=== PATIENT | male | born 1950 | race Caucasian/White ===

== ENCOUNTER 2020-08-21 20:41 | Emergency (ER) | payer OTHER, MEDICAID, SELFPAY ==
[2020-08-21 20:44] VITALS: BP 176/101; PULSE 66; RESP 15; TEMP 36.8; O2SAT 96; BMI 24.3
--- NOTE | 2020-08-21 20:47 | ECG_ITS ---
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 Measurements Intervals [place] Rate: 62 P: 75 [place]: 139 QRS: 67 QRSD: 93 T: 56 QT: 398 QTc: 406 Interpretive Statements SINUS RHYTHM MINIMAL ST DEPRESSION [0.025+ mV ST DEPRESSION] Compared to ECG 11/27/2018 19:13:34 ST (T wave) deviation now present Sinus bradycardia no longer present Sinus arrhythmia no longer present Electronically Signed On 08-22-2020 22:14:57 CDT by Lex Palm M.D. [email or web address]/store/NU/[id number] f
--- NOTE | 2020-08-21 20:47 | XRR_ITS ---
PROCEDURE INFORMATION: Exam: XR Chest Exam date and time: 08/21/2020 9:09 PM Age: 69 years old Clinical indication: Pain; Chest pressure and left-sided; Additional info: Cp TECHNIQUE: Imaging protocol: XR of the chest. Views: 1 view. COMPARISON: CR Chest 2 views* [id number] 05/16/2018 1:59 PM FINDINGS: Lungs: Emphysema. Mild atelectasis or scarring in the lung bases. The lungs are otherwise clear. Pleural spaces: Unremarkable. No pleural effusion. No pneumothorax. Heart/Mediastinum: Unremarkable. No cardiomegaly. Bones/joints: Unremarkable. XR/XR chest 1V portable [id number] IMPRESSION: No acute findings.
[2020-08-21 21:07] LABS: Basophils # 0.1 10^3/uL (0.0-0.1); Eosinophils # 0.1 10^3/uL (0.0-0.8); Eosinophils % 1.5 %; Hematocrit 43.4 % (42.0-52.0); Hemoglobin 14.9 g/dL (11.7-16.6); Lymphocytes # 2.4 10^3/uL (0.8-4.8); Lymphocytes % 26.9 %; Mean Corpuscular HGB Conc 34.3 g/dL (30.0-36.0); Mean Corpuscular Hemoglobin 29.4 pg (28.0-34.0); Mean Corpuscular Volume 85.8 fL (80-94); Mean Platelet Volume 10.5 fL (7.4-10.4); Monocytes # 0.8 10^3/uL (0.2-0.9); Monocytes % 9.4 %; Neutrophils # 5.34 10^3/uL (1.8-7.7); Nucleated Red Blood Cells % 0 %; Platelet Count 260 10^3/cmm (130-400); Red Blood Count 5.06 10^6/uL (4.1-5.3); Red Cell Distribution Width 12.9 % (12.1-15.1); White Blood Count 8.8 10^3/uL (4.0-10.0)
[2020-08-21 21:20] VITALS: BP 138/85; PULSE 72; RESP 17; O2SAT 95
[2020-08-21 21:30] VITALS: BP 162/93; PULSE 60; RESP 16; O2SAT 95
[2020-08-21 21:34] LABS: Troponin(5th) Baseline 7 ng/L (0-15)
[2020-08-21 21:44] LABS: Alanine Aminotransferase 8 U/L (0-41); Albumin Level 4.3 g/dL (3.5-5.2); Alkaline Phosphatase 118 IU/L (40-130); Anion Gap 14.7 (5-19); Aspartate Amino Transferase 13 U/L (0-40); Blood Urea Nitrogen 14 mg/dL (8-23); Calcium 9.3 mg/dL (8.5-10.5); Carbon Dioxide 26 mmol/L (22-29); Chloride 101 mmol/L (98-107); Globulin 2.5 g/dL (1.3-4.6); Glomerular Filtration Rate 83.7 mL/min (90-130); Glucose 123 mg/dL (65-115); NT Pro B Type Natriuretic Pept 242 pg/mL (0-125); Osmolality Calculated 288 mOsm/kg (285-295); Potassium 3.7 mmol/L (3.5-5.1); Sodium 138 mmol/L (136-145); Total Bilirubin 0.3 mg/dL (0.15-1.2); Total Protein 6.8 g/dL (6.6-8.7)
[2020-08-21 21:50] LABS: D Dimer 2.54 ug/mIFEU (0-0.59)
[2020-08-21 22:00] VITALS: BP 172/95; PULSE 66; RESP 16; O2SAT 97
--- NOTE | 2020-08-21 22:04 | CTR_ITS ---
PROCEDURE INFORMATION: Exam: CTA Chest With Contrast Exam date and time: 08/21/2020 10:20 PM Age: 69 years old Clinical indication: Sternal or substernal pain; Patient HX: C/O intermittent substernal cp x 3 days; Additional info: Cp. Elevated d dimer TECHNIQUE: Imaging protocol: Computed tomographic angiography of the chest with contrast. 3D rendering (Not supervised by radiologist): MIP and/or 3D reconstructed images were created by the technologist. Radiation optimization: All CT scans at this facility use at least one of these dose optimization techniques: automated exposure control; mA and/or kV adjustment per patient size (includes targeted exams where dose is matched to clinical indication); or iterative reconstruction. Contrast material: OMNI 350; Contrast volume: 81 ml; Contrast route: INTRAVENOUS (IV); COMPARISON: CR (CHEST, ) 08/21/2020 9:13 PM RADIATION DOSE METRICS: Total DLP (mGy-cm): 604.23 FINDINGS: Pulmonary arteries: Normal. No pulmonary emboli. Aorta: Mild aneurysmal dilatation of the proximal abdominal aorta measuring 3.1 cm. Mild aneurysmal dilatation of the descending thoracic aorta measuring 3.2 cm. No dissection. Lungs: Emphysema. Mild interstitial scarring in the peripheral upper lobes. Large calcified granuloma in the superior segment of the left lower lobe. 3.1 cm spiculated nodule in the retro hilar left lower lobe. 6 mm perifissural nodule along the left major fissure near the hilum, most likely a pulmonary lymph node. Pleural spaces: Unremarkable. No pneumothorax. No pleural effusion. Heart: Unremarkable. No cardiomegaly. No pericardial effusion. Lymph nodes: 0.8 cm pretracheal lymph node is likely benign by size. Gallbladder and bile ducts: Cholelithiasis with a small calculus in the gallbladder neck. Bile ducts are normal. Bones/joints: Unremarkable. No acute fracture. Soft tissues: Unremarkable. CT/CT angio chest PE protcl [id number] IMPRESSION: 1. 3.1 cm spiculated nodule in the retro hilar left lower lobe, highly suspicious for bronchogenic carcinoma. Highly suspicious nodule(s). Consider non-emergent PET/CT, or tissue sampling.(Reference: Ronni) 2. No evidence for pulmonary embolus. 3. 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 References: Ronni Cote, et al. Guidelines for Management of Incidental Pulmonary Nodules Detected on CT Images: From the Fleischner Society 2017. Radiology. 2017;284(1):228-243. Radiation Dose CTDIVOL = (mGy): DLP = 604.23 (mGy-cm)
--- NOTE | 2020-08-21 22:11 | W.ED.CHESTPA ---
Documented by User: Kevin Jiménez MD 08/22/20 12:10 HPI - Chest Pain General: Chief Complaint: Chest Pain Stated Complaint: CP Time Seen by Provider: 08/21/20 20:43 History of Present Illness: HPI narrative: The patient is a 69-year-old male with past medical history hypertension who comes to the ER complaining of midsternal chest pain for the past 3 days. It radiates to the right and left. He denies any previous cardiac history. He says it started when he was playing a video game at home. He says it has been on and off for the past 3 days. He has never seen a tree specialist. He called EMS who gave him 325 mg aspirin. They also gave him a nitroglycerin. He said he was not feeling chest pain whenever they gave him the nitroglycerin but he does have a mild headache related to that medication. He denies chest pain in the ER as well. complaint: chest pain Timing of current episode: episodic Prior episodes: Yes Onset: during rest Pain location: substernal Severity: mild Relieving factors: nothing Exacerbating factors: nothing Associated symptoms: Reports no associated symptoms; Deny abdominal pain, dyspnea or palpitations Review of Systems General: Reports: 10 or more systems reviewed and unremarkable except in HPI and below Const: Denies: fatigue Eyes: Denies: change in vision, blurry vision or eye redness ENMT: Denies: throat pain, swelling of lips/tongue, ear or mastoid pain or nasal congestion Card: Denies: chest pain, palpitations, irregular heart rhythm, edema, dyspnea on exertion or orthopnea Resp: Denies: dyspnea, productive cough or non-productive cough GI: Denies: abdominal pain, diarrhea or GI cramping : Denies: flank pain, urinary frequency or urinary urgency Musc: Denies: neck pain, back pain, extremity pain, joint pain, joint redness, limited range of motion or muscle weakness Skin/Breast: Denies: rash, pruritus, erythema, skin pain or skin tenderness Neuro: Denies: headache(s), numbness in extremities, weakness in extremities, sensory changes, difficulty walking, dizziness, confusion or Slurred speech present Psych: Denies: anxiety or depression Endo: Denies: polyuria All/Imm: Denies: urticaria, throat swelling or tongue swelling Physical Exam Const: COMMON NORMALS: no acute distress, average body habitus, patient oriented x3, no limitations, healthy appearing, alert and well nourished GENERAL APPEARANCE: cooperative, comfortable, well kempt and well developed ORIENTATION/CONSCIOUSNESS: Yes awake, Yes oriented to person, Yes oriented to place and Yes oriented to time HENMT: COMMON NORMALS: normocephalic, external ears normal and Normal external nose present HEAD & SCALP: normal to inspection and normocephalic NOSE: Normal external nose present EXTERNAL EAR: Yes external ears normal MOUTH: Normal oral and palatal mucosa present THROAT: posterior oropharynx normal Eye: COMMON NORMALS: Equal, round and reactive pupils present and EOMs intact bilaterally GENERAL EYE: appearance normal, both eyes and all related structures PUPIL: Yes Equal, round and reactive pupils present Neck/C-Spine: COMMON NORMALS: full ROM, no lymphadenopathy, no meningeal signs and no JVD GENERAL: Yes normal visual inspection Lymph: LYMPHATIC: no lymphadenopathy noted Chest: COMMONS NORMALS: normal inspection of the chest and normal palpation of entire chest wall Resp: COMMON NORMALS: normal respiratory effort, No retractions, No use of accessory muscles, clear to auscultation bilaterally and percussion normal EFFORT & INSPECTION: Yes able to speak in complete sentences AUSCULTATION: clear to auscultation bilaterally PERCUSSION: percussion normal Cardio: COMMON NORMALS: no JVD, regular rate, regular rhythm, S1 normal heart sound present, S2 normal heart sound present and Peripheral pulses 2+ throughout RATE: regular rate RHYTHM: regular rhythm HEART SOUNDS: S1 normal heart sound present and S2 normal heart sound present PERIPHERAL PULSES: Peripheral pulses 2+ throughout GI: COMMON NORMALS: Normal to inspection, nondistended, normoactive bowel sounds present, Soft to palpation, non-tender and no masses INSPECTION: Yes normal to inspection PALPATION: Yes Soft to palpation : COMMON NORMALS: Yes no CVA tenderness BLADDER/KIDNEY EXAM: Yes no CVA tenderness Back/Pelvis: COMMON NORMALS: no CVA tenderness, thoracic and lumbar spine normal to inspection, no thoracic nor lumbar tenderness and thoraco-lumbar ROM normal Extremity: COMMON NORMALS: normal to inspection, full ROM, capillary refill normal, no joint enlargement and no pedal edema GENERAL: Yes normal exam except as noted Neuro: COMMON NORMALS: patient oriented x3, CN's II-XII intact bilaterally, moves all extremities, no focal motor deficits, no sensory deficits noted and gait normal SENSORIUM/ORIENTATION: Yes alert, Yes oriented to person, Yes oriented to place and Yes oriented to time MENINGEAL SIGNS: Yes no meningeal signs Psych: COMMON NORMALS: mental status grossly normal, Normal thought process present, cooperative, normal affect and speech normal APPEARANCE: Yes well kempt ATTITUDE: Yes calm SPEECH: Yes normal speech THOUGHT PROCESS: Normal thought process present Skin: COMMON NORMALS: no rashes or lesions noted GENERAL SKIN EXAM: no rashes or lesions noted Course Vital Signs: Vital signs: Vital Signs Temperature 98.3 F 08/21/20 20:44 Pulse Rate 56 L 08/22/20 01:44 Respiratory Rate 17 08/22/20 01:44 Blood Pressure 180/87 08/22/20 01:44 Pulse Oximetry 95 08/22/20 01:44 MDM - Chest Pain Lab Data: Labs: Lab Results 08/21/20 08/21/20 08/21/20 Range/Units 21:02 21:02 21:02 WBC 8.8 (4.0-10.0) 10^3/ uL RBC 5.06 (4.1-5.3) 10^6/u L Hgb 14.9 (11.7-16.6) g/dL Hct 43.4 (42.0-52.0) % MCV 85.8 (80-94) fL MCH 29.4 (28.0-34.0) pg MCHC 34.3 (30.0-36.0) g/dL RDW 12.9 (12.1-15.1) % Plt Count 260 (130-400) 10^3/c mm MPV 10.5 H (7.4-10.4) fL Neut % (Auto) 61.0 % Lymph % (Auto) 26.9 % [place] % (Auto) 9.4 % Eos % (Auto) 1.5 % Baso % (Auto) 1.0 % Neut # (Auto) 5.34 (1.8-7.7) 10^3/u L Lymph # (Auto) 2.4 (0.8-4.8) 10^3/u L [place] # (Auto) 0.8 (0.2-0.9) 10^3/u L Eos # (Auto) 0.1 (0.0-0.8) 10^3/u L Baso # (Auto) 0.1 (0.0-0.1) 10^3/u L Nucleated RBC % (a uto) 0 % Nucleated RBCs # 0.0 /100WBC D-Dimer (0-0.59) ug/mIFE U Sodium 138 (136-145) mmol/L Potassium 3.7 (3.5-5.1) mmol/L Chloride 101 (98-107) mmol/L Carbon Dioxide 26 (22-29) mmol/L Anion Gap 14.7 (5-19) BUN 14 (8-23) mg/dL Creatinine 0.9 (0.7-1.2) mg/dL GFR Calculation 83.7 L (90-130) mL/min Glucose 123 H (65-115) mg/dL Calculated Osmolal ity 288 (285-295) mOsm/k g Calcium 9.3 (8.5-10.5) mg/dL Total Bilirubin 0.3 (0.15-1.2) mg/dL AST 13 (0-40) U/L ALT 8 (0-41) U/L Alkaline Phosphata se 118 (40-130) IU/L Troponin T Baselin e 7 (0-15) ng/L Troponin T 120 Min [place] (0-15) ng/L Delta Troponin T (0-10) ABS# NT-Pro-B Natriuret Pep 242 H (0-125) pg/mL Total Protein 6.8 (6.6-8.7) g/dL Albumin 4.3 (3.5-5.2) g/dL Globulin 2.5 (1.3-4.6) g/dL 08/21/20 08/21/20 Range/Units 21:25 23:46 WBC (4.0-10.0) 10^3/ uL RBC (4.1-5.3) 10^6/u L Hgb (11.7-16.6) g/dL Hct (42.0-52.0) % MCV (80-94) fL MCH (28.0-34.0) pg MCHC (30.0-36.0) g/dL RDW (12.1-15.1) % Plt Count (130-400) 10^3/c mm MPV (7.4-10.4) fL Neut % (Auto) % Lymph % (Auto) % [place] % (Auto) % Eos % (Auto) % Baso % (Auto) % Neut # (Auto) (1.8-7.7) 10^3/u L Lymph # (Auto) (0.8-4.8) 10^3/u L [place] # (Auto) (0.2-0.9) 10^3/u L Eos # (Auto) (0.0-0.8) 10^3/u L Baso # (Auto) (0.0-0.1) 10^3/u L Nucleated RBC % (a uto) % Nucleated RBCs # /100WBC D-Dimer 2.54 H (0-0.59) ug/mIFE U Sodium (136-145) mmol/L Potassium (3.5-5.1) mmol/L Chloride (98-107) mmol/L Carbon Dioxide (22-29) mmol/L Anion Gap (5-19) BUN (8-23) mg/dL Creatinine (0.7-1.2) mg/dL GFR Calculation (90-130) mL/min Glucose (65-115) mg/dL Calculated Osmolal ity (285-295) mOsm/k g Calcium (8.5-10.5) mg/dL Total Bilirubin (0.15-1.2) mg/dL AST (0-40) U/L ALT (0-41) U/L Alkaline Phosphata se (40-130) IU/L Troponin T Baselin e (0-15) ng/L Troponin T 120 Min [place] 8.05 (0-15) ng/L Delta Troponin T 1.05 (0-10) ABS# NT-Pro-B Natriuret Pep (0-125) pg/mL Total Protein (6.6-8.7) g/dL Albumin (3.5-5.2) g/dL Globulin (1.3-4.6) g/dL Discharge Plan Discharge Patient Disposition: Home Clinical Impression: Chest pain Qualifiers: Chest pain type: unspecified Qualified Code(s): R07.9 - Chest pain, unspecified Condition: Stable Discharge Orders: Discharge ED (Routine); Ordered 08/22/20 Ordered By: Srinivas Hong Referrals: Nusrat Galicia, [facility] [Primary Care Provider] - Discharge Diet: Advance as tolerated Discharge Activity: Increase activity as tolerated Patient Instructions: Lump/Mass, Chest Pain (ED) Activity Restrictions/Additional Instructions: A referral has been placed for our manager of case management to set you up with an appointment for cardiothoracic surgery evaluation to see if biopsy is needed of the pulmonary nodule found on your CAT scan of your chest. In the meantime, return to the emergency department for return of chest pain, shortness of breath, fever, any other concerning symptoms. Coding Level of Care Code ED Prosthetic Aide for Chg Fwd Exam Comprehensive Documented by User: Srinivas Hong, 08/22/20 02:24 HPI - Chest Pain General: Chief Complaint: Chest Pain Stated Complaint: CP Time Seen by Provider: 08/21/20 20:43 Course Vital Signs: Vital signs: Vital Signs Temperature 98.3 F 08/21/20 20:44 Pulse Rate 56 L 08/22/20 01:44 Respiratory Rate 17 08/22/20 01:44 Blood Pressure 180/87 08/22/20 01:44 Pulse Oximetry 95 08/22/20 01:44 MDM - Chest Pain MDM Narrative: Medical decision making narrative: 69-year-old male checked out to me by Dr. Rosado at shift change. This gentleman had chest pain earlier in the evening. Cardiac work-up was negative. His EKG showed no acute ST changes x2. His troponin did not elevate. His D-dimer was significantly high, so CTA of the chest was ordered. It is negative for pulmonary embolism or infiltrate. However, there is a suspicious pulmonary nodule for bronchogenic carcinoma apparent. The patient was counseled on this, and the need for follow-up and tissue diagnosis. Case management referral has been placed for a office visit to cardiothoracic surgery for follow-up. Lab Data: Labs: Lab Results 08/21/20 08/21/20 08/21/20 Range/Units 21:02 21:02 21:02 WBC 8.8 (4.0-10.0) 10^3/ uL RBC 5.06 (4.1-5.3) 10^6/u L Hgb 14.9 (11.7-16.6) g/dL Hct 43.4 (42.0-52.0) % MCV 85.8 (80-94) fL MCH 29.4 (28.0-34.0) pg MCHC 34.3 (30.0-36.0) g/dL RDW 12.9 (12.1-15.1) % Plt Count 260 (130-400) 10^3/c mm MPV 10.5 H (7.4-10.4) fL Neut % (Auto) 61.0 % Lymph % (Auto) 26.9 % [place] % (Auto) 9.4 % Eos % (Auto) 1.5 % Baso % (Auto) 1.0 % Neut # (Auto) 5.34 (1.8-7.7) 10^3/u L Lymph # (Auto) 2.4 (0.8-4.8) 10^3/u L [place] # (Auto) 0.8 (0.2-0.9) 10^3/u L Eos # (Auto) 0.1 (0.0-0.8) 10^3/u L Baso # (Auto) 0.1 (0.0-0.1) 10^3/u L Nucleated RBC % (a uto) 0 % Nucleated RBCs # 0.0 /100WBC D-Dimer (0-0.59) ug/mIFE U Sodium 138 (136-145) mmol/L Potassium 3.7 (3.5-5.1) mmol/L Chloride 101 (98-107) mmol/L Carbon Dioxide 26 (22-29) mmol/L Anion Gap 14.7 (5-19) BUN 14 (8-23) mg/dL Creatinine 0.9 (0.7-1.2) mg/dL GFR Calculation 83.7 L (90-130) mL/min Glucose 123 H (65-115) mg/dL Calculated Osmolal ity 288 (285-295) mOsm/k g Calcium 9.3 (8.5-10.5) mg/dL Total Bilirubin 0.3 (0.15-1.2) mg/dL AST 13 (0-40) U/L ALT 8 (0-41) U/L Alkaline Phosphata se 118 (40-130) IU/L Troponin T Baselin e 7 (0-15) ng/L Troponin T 120 Min [place] (0-15) ng/L Delta Troponin T (0-10) ABS# NT-Pro-B Natriuret Pep 242 H (0-125) pg/mL Total Protein 6.8 (6.6-8.7) g/dL Albumin 4.3 (3.5-5.2) g/dL Globulin 2.5 (1.3-4.6) g/dL 08/21/20 08/21/20 Range/Units 21:25 23:46 WBC (4.0-10.0) 10^3/ uL RBC (4.1-5.3) 10^6/u L Hgb (11.7-16.6) g/dL Hct (42.0-52.0) % MCV (80-94) fL MCH (28.0-34.0) pg MCHC (30.0-36.0) g/dL RDW (12.1-15.1) % Plt Count (130-400) 10^3/c mm MPV (7.4-10.4) fL Neut % (Auto) % Lymph % (Auto) % [place] % (Auto) % Eos % (Auto) % Baso % (Auto) % Neut # (Auto) (1.8-7.7) 10^3/u L Lymph # (Auto) (0.8-4.8) 10^3/u L [place] # (Auto) (0.2-0.9) 10^3/u L Eos # (Auto) (0.0-0.8) 10^3/u L Baso # (Auto) (0.0-0.1) 10^3/u L Nucleated RBC % (a uto) % Nucleated RBCs # /100WBC D-Dimer 2.54 H (0-0.59) ug/mIFE U Sodium (136-145) mmol/L Potassium (3.5-5.1) mmol/L Chloride (98-107) mmol/L Carbon Dioxide (22-29) mmol/L Anion Gap (5-19) BUN (8-23) mg/dL Creatinine (0.7-1.2) mg/dL GFR Calculation (90-130) mL/min Glucose (65-115) mg/dL Calculated Osmolal ity (285-295) mOsm/k g Calcium (8.5-10.5) mg/dL Total Bilirubin (0.15-1.2) mg/dL AST (0-40) U/L ALT (0-41) U/L Alkaline Phosphata se (40-130) IU/L Troponin T Baselin e (0-15) ng/L Troponin T 120 Min [place] 8.05 (0-15) ng/L Delta Troponin T 1.05 (0-10) ABS# NT-Pro-B Natriuret Pep (0-125) pg/mL Total Protein (6.6-8.7) g/dL Albumin (3.5-5.2) g/dL Globulin (1.3-4.6) g/dL Discharge Plan Discharge Patient Disposition: Home Clinical Impression: Chest pain Qualifiers: Chest pain type: unspecified Qualified Code(s): R07.9 - Chest pain, unspecified Condition: Stable Discharge Orders: Discharge ED (Routine); Ordered 08/22/20 Ordered By: Srinivas Hong Referrals: Nusrat Galicia FNP-C [Primary Care Provider] - Discharge Diet: Advance as tolerated Discharge Activity: Increase activity as tolerated Patient Instructions: Lump/Mass, Chest Pain (ED) Activity Restrictions/Additional Instructions: A referral has been placed for our manager of case management to set you up with an appointment for cardiothoracic surgery evaluation to see if biopsy is needed of the pulmonary nodule found on your CAT scan of your chest. In the meantime, return to the emergency department for return of chest pain, shortness of breath, fever, any other concerning symptoms. Coding Level of Care Code ED Prosthetic Aide for Sharmila [place] Exam Comprehensive
[2020-08-21 22:30] VITALS: BP 191/82; PULSE 66; RESP 16; O2SAT 97
[2020-08-21] MEDS: iohexol 350 mg/mL 100 mL Btl IV (22:34)
--- NOTE | 2020-08-21 22:47 | ECG_ITS ---
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 Measurements Intervals [place] Rate: 56 P: 61 NE: 133 QRS: 69 QRSD: 97 T: 61 QT: 413 QTc: 399 Interpretive Statements SINUS BRADYCARDIA Compared to ECG 11/27/2018 19:13:34 Sinus arrhythmia no longer present Electronically Signed On 08-22-2020 22:16:14 CDT by Lex Palm M.D. [id number]
[2020-08-22] MEDS: enalaprilat 1.25 mg/mL Inj IVP (00:02)
[2020-08-22 00:05] VITALS: BP 190/95; PULSE 59; RESP 18; O2SAT 97
[2020-08-22 00:16] VITALS: BP 185/91; PULSE 52; RESP 16; O2SAT 96
[2020-08-22 00:16] LABS: Troponin 5 2HR 8.05 ng/L (0-15); Troponin 5 2HR Delta 1.05 ABS# (0-10)
[2020-08-22 01:00] VITALS: BP 180/87; PULSE 56; RESP 17; O2SAT 96
[2020-08-22 01:43] VITALS: BP 180/87; PULSE 56; RESP 17; O2SAT 95
[2020-08-22 01:44] VITALS: BP 180/87; PULSE 56; RESP 17; O2SAT 95
--- NOTE | 2020-08-25 10:42 | DCPLANNER ---
manager of regulatory affairs had message to schedule a follow up appointment for patient with Dr. Esquivel at [facility], and a follow up appointment with cardiology. manager of regulatory affairs called [facility], spoke with Katie, gave clinic patients information. A follow up appointment was scheduled for Monday, September 14, 2020 at 2:[address] Dorantes. manager of regulatory affairs also gave Katie patients information for a follow up appointment with Dr. Esquivel. A follow up appointment was scheduled for Thursday, September 03, 2020 at 11:[address] Esquivel. manager of regulatory affairs called patient and gave patient the appointment information for both appointments.
--- NOTE | 2020-10-14 07:02 | DCPLANNER ---
Patient had a follow up appointment scheduled for 09.03.20 with [facility] - patient did attend appointment.
--- NOTE | 2020-10-14 07:44 | DCPLANNER ---
Patient had a follow up appointment scheduled with [facility] - patient did attend appointment.
== END 2020-08-22 01:40 | disposition home or self-care (01) ==
PROVIDERS: Family Medicine; Emergency Provider Emergency Medicine; PCP Nurse Practitioner
DX: R07.9 Chest pain, unspecified (principal)
CPT/HCPCS: 36415; 71045; 71275; 80053; 83880; 84484; 85025; 85378; 93005; 96374; 99284; J3490; Q9967

== ENCOUNTER 2021-03-19 15:06 | Emergency (ER) | payer MEDICARE, MEDICAID, SELFPAY ==
--- NOTE | 2021-03-19 15:37 | XRR_ITS ---
PROCEDURE INFORMATION: Exam: XR Chest Exam date and time: 03/19/2021 3:37 PM Age: 70 years old Clinical indication: Cough and shortness of breath; Additional info: Dyspnea/cough TECHNIQUE: Imaging protocol: XR of the chest. Views: 1 view. Total images: 1 COMPARISON: 1. CR (CHEST, ) 08/21/2020 9:[address] angio chest PE protcl [id number] 10:21 PM FINDINGS: Lungs: No visible active interstitial or alveolar airspace disease. COPD/chronic bronchitis/centrilobular emphysema. Again note of a superior segment left upper lobe calcified granuloma of antecedent disease. The medial basal segment retrohilar/retrocardiac mass identifiable on the CTA chest exam of 08/21/2020 is poorly radiographically visible. Pleural spaces: No pleural effusion. No pneumothorax. Heart/Mediastinum: Cardiac structures and configuration within normal limits for age. Bones/joints: Mild scoliotic curvature of the spine. XR/XR chest 1V portable [id number] IMPRESSION: 1. No radiographic evidence for acute cardiopulmonary process. 2. Other nonurgent/nonemergent findings as detailed in text above.
--- NOTE | 2021-03-19 15:37 | ECG_ITS ---
[facility] Test Date: 2021-03-19 Pat Name: Dario Brunner Department: Room: Gender: Male Rib Chopper: : 1950 Requested By: Elias Liang Order Number: [id number] Royce MD: Mary Dorantes M.D. Measurements Intervals [place] Rate: 45 P: 60 CA: 143 QRS: 71 QRSD: 91 T: 66 QT: 447 QTc: 389 Interpretive Statements SINUS BRADYCARDIA MINIMAL ST DEPRESSION [0.025+ mV ST DEPRESSION] Compared to ECG 08/21/2020 22:49:31 ST (T wave) deviation now present Electronically Signed On 03-20-2021 20:15:34 GAS COMPRESSOR TURBINE OPERATOR by Mary Dorantes M.D. [id number]
--- NOTE | 2021-03-19 16:00 | W.ED.SOB ---
HPI - SOB/Dyspnea General: Stated Complaint: SOB Time Seen by Provider: 03/19/21 15:11 History of Present Illness: HPI Narrative: 70-year-old male presents to the emergency room with complaints of shortness of breath. Presented via EMS. He denies any chest pain. He is extremely kyphotic. He has had a moderately productive cough. No fever. On arrival here his O2 sat is 99% on 3 L by nasal cannula which is what he usually uses. MD elicited complaint: shortness of breath and cough Pertinent past history: COPD Onset (ago): hour(s) Timing: constant Severity: mild Exacerbating factors: exertion and coughing Relieving factors: oxygen, rest and bronchodilators Known history of: COPD Associated symptoms: Reports cough; Deny abdominal pain, chest congestion, chest pain, diaphoresis, dizziness, extremity pain, fever(s), hemoptysis, lightheadedness, myalgias, nausea, orthopnea, palpitations, paresthesias, polydipsia, polyuria, rash, sense of impending doom, syncope or vomiting Treatment prior to arrival: oxygen and bronchodilator Review of Systems Const: Denies: fever(s) or diaphoresis Eyes: Denies: change in vision or blurry vision ENMT: Denies: throat pain, oral sores, dental pain, nasal discharge or nasal congestion Card: Denies: chest pain, palpitations, lightheadedness, syncope or orthopnea Resp: Denies: hemoptysis or chest congestion GI: Denies: abdominal pain, nausea or vomiting : Denies: flank pain, difficulty urinating, dysuria, urinary frequency, urinary urgency, urinary incontinence or hematuria Musc: Denies: extremity pain Skin/Breast: Denies: rash, pruritus or erythema Neuro: Denies: dizziness Psych: Denies: anxiety, depression, loss of interest, visual hallucinations, auditory hallucinations, suicidal ideation or homicidal ideation Endo: Denies: polyuria or polydipsia Nnamdi/Lymph: Denies: easy bruising, easy bleeding, petechiae, enlarged lymph nodes or tender lymph nodes PFSH ED PFSH: Medical History COPD (chronic obstructive pulmonary disease) Hypertension Lung mass Schizophrenia Family History Mother Cancer Other Family history unobtainable due to orphan status Social History Smoking and tobacco status: current every day smoker cigarettes Packs smoked per day: 1 Years cigarettes smoked: 40 Alcohol intake: former Year of sobriety/quit date alcohol: 25 Physical Exam Const: ORIENTATION/CONSCIOUSNESS: Yes awake, Yes oriented to person, Yes oriented to place and Yes oriented to time HENMT: COMMON NORMALS: normocephalic, atraumatic and hearing grossly normal bilaterally HEAD & SCALP: normocephalic and atraumatic Neck/C-Spine: COMMON NORMALS: no JVD Resp: AUSCULTATION: rhonchi and wheezes Cardio: COMMON NORMALS: no JVD, regular rhythm and No murmurs present (Cardio) RATE: bradycardic RHYTHM: regular rhythm GI: COMMON NORMALS: Soft to palpation and No hepatosplenomegaly present AUSCULTATION: Yes normoactive bowel sounds PALPATION: Yes Soft to palpation, No Tenderness to palpation present (GI), No Guarding due to palpation present (GI) and Yes No hepatosplenomegaly present Extremity: COMMON NORMALS: normal to inspection, capillary refill normal, no clubbing, cyanosis or edema, no calf tenderness and no pedal edema Neuro: SENSORIUM/ORIENTATION: Yes oriented to person, Yes oriented to place and Yes oriented to time Skin: COMMON NORMALS: no rashes or lesions noted GENERAL SKIN EXAM: no rashes or lesions noted Course Vital Signs: Vital signs: Vital Signs Pulse Rate 60 03/19/21 19:35 Respiratory Rate 18 03/19/21 19:35 Blood Pressure 145/81 03/19/21 19:35 Pulse Oximetry 93 03/19/21 19:35 MDM - SOB/Dyspnea MDM Narrative: Medical decision making narrative: Labs and imaging reviewed as well as EKGs. Patient is feeling better sats remaining stable. He has pretty significant COPD. We will tomi discharge him home put him on a steroid taper in addition to that we will have him start doxycycline use albuterol regularly continue to use his oxygen and follow-up with his primary care doctor within the next 4 to 5 days return sooner if there is further problems. Lab Data: Labs: Lab Results 03/19/21 03/19/21 03/19/21 15:20 15:20 15:20 WBC 10.6 10^3/uL H 10 ^3/uL (4.0-10.0) RBC 5.25 10^6/uL 10^6 /uL (4.1-5.3) Hgb 15.9 g/dL g/dL (11.7-16.6) Hct 47.1 % % (42.0-52.0) MCV 89.7 fl fl (80-94) MCH 30.3 pg pg (28.0-34.0) MCHC 33.8 g/dL g/dL (30.0-36.0) RDW 13.2 % % (12.1-15.1) Plt Count 284 10^3/cmm 10^3 /cmm (130-400) MPV 10.6 fL H fL (7.4-10.4) Neut % (Auto) 63.7 % % Lymph % (Auto) 24.9 % % [place] % (Auto) 8.4 % % Eos % (Auto) 1.9 % % Baso % (Auto) 0.9 % % Neut # (Auto) 6.77 10^3/uL 10^3 /uL (1.8-7.7) Lymph # (Auto) 2.7 10^3/uL 10^3/ uL (0.8-4.8) [place] # (Auto) 0.9 10^3/uL 10^3/ uL (0.2-0.9) Eos # (Auto) 0.2 10^3/uL 10^3/ uL (0.0-0.8) Baso # (Auto) 0.1 10^3/uL 10^3/ uL (0.0-0.1) Nucleated RBC % (a uto) 0 % % Nucleated RBCs # 0.0 /100WBC /100W BC Specimen Type Sample Site ABG pH ABG pCO2 ABG pO2 ABG HCO3 ABG O2 Saturation ABG Base Excess [place] Test A-a O2 Gradient Hematocrit Hgb O2 Saturation Carboxyhemoglobin Methemoglobin Total Hemoglobin Ionized Calcium O2 Delivery Device FiO2 Theology Professor ID Sodium 139 mmol/L mmol/L (136-145) Potassium 4.3 mmol/L mmol/L (3.5-5.1) Chloride 103 mmol/L mmol/L (98-107) Carbon Dioxide 22 mmol/L mmol/L (22-29) Anion Gap 18.3 (5-19) BUN 16 mg/dL mg/dL (8-23) Creatinine 0.9 mg/dL mg/dL (0.7-1.2) GFR Calculation 83.4 mL/min L mL/ min (90-130) Glucose 96 mg/dL mg/dL (65-115) Calculated Osmolal ity 289 mOsm/kg mOsm/ kg (285-295) Calcium 9.0 mg/dL mg/dL (8.5-10.5) Total Bilirubin 0.6 mg/dL mg/dL (0.15-1.2) AST 14 U/L U/L (0-40) ALT 8 U/L U/L (0-41) Alkaline Phosphata se 123 IU/L IU/L (40-130) Troponin T Baselin e 7 ng/L ng/L (0-15) Troponin T 120 Min [place] Troponin T Total Protein 6.9 g/dL g/dL (6.6-8.7) Albumin 4.6 g/dL g/dL (3.5-5.2) Globulin 2.3 g/dL g/dL (1.3-4.6) 03/19/21 03/19/21 17:10 17:45 WBC RBC Hgb Hct MCV MCH MCHC RDW Plt Count MPV Neut % (Auto) Lymph % (Auto) [place] % (Auto) Eos % (Auto) Baso % (Auto) Neut # (Auto) Lymph # (Auto) [place] # (Auto) Eos # (Auto) Baso # (Auto) Nucleated RBC % (a uto) Nucleated RBCs # Specimen Type Arterial Sample Site Radial, left ABG pH 7.35 (7.35-7.45) ABG pCO2 45.3 mmHg H mmHg (35-45) ABG pO2 77.8 mmHg L mmHg (80.0-100.0) ABG HCO3 25.2 mmol/L mmol/ L (22-26) ABG O2 Saturation 96.6 ABG Base Excess -0.8 mmol/L mmol/ L (-2.0-2.0) [place] Test Pos A-a O2 Gradient 11.9 mmHg H mmHg (5-10) Hematocrit 48.6 % % (42-52) Hgb O2 Saturation 92.0 % L % (95-100) Carboxyhemoglobin 4.1 %THgb %THgb (0.4-20.1) Methemoglobin 0.7 % % (0.4-1.5) Total Hemoglobin 15.8 g/dL g/dL (14-18) Ionized Calcium 1.3 mmol/L mmol/L (1.1-1.4) O2 Delivery Device Nc FiO2 32.0 % % Theology Professor ID Monros Sodium 141.0 mmol/L mmol /L (131-143) Potassium 4.0 mmol/L mmol/L (3.5-5.0) Chloride Carbon Dioxide Anion Gap BUN Creatinine GFR Calculation Glucose 126.0 mg/dL H mg/ dL (70-115) Calculated Osmolal ity Calcium Total Bilirubin AST ALT Alkaline Phosphata se Troponin T Baselin e Troponin T 120 Min [place] 6.88 ng/L ng/L (0-15) Delta Troponin T -0.12 ABS# L ABS# (0-10) Total Protein Albumin Globulin Discharge Plan Discharge Patient Disposition: Home Clinical Impression: COPD with acute exacerbation Condition: Stable Prescriptions: New doxycycline hyclate 100 mg capsule 100 mg PO BID 10 Days Qty: 20 RF: 0 Medrol (Miguel Ángel) 4 mg tablets,dose pack See Rx Instructions .ROUTE .COMPLEX Qty: 21 RF: 0 albuterol sulfate 90 mcg/actuation HFA aerosol inhaler 2 inh INHALATION Q4H PRN (Reason: shortness of breath or wheezing) Qty: 18 RF: 0 No Action carvedilol 12.5 mg tablet 12.5 mg PO BID Qty: 60 RF: 5 amlodipine 5 mg tablet 5 mg PO DAILY Qty: 90 RF: 3 aspirin 81 mg tablet,delayed release (DR/EC) 81 mg PO DAILY Qty: 90 RF: 3 Discharge Orders: Discharge ED (Routine); Ordered 03/19/21 Ordered By: Elias Daniels Referrals: Estelita Arellano APN [Primary Care Provider] - Discharge Diet: Usual diet Discharge Activity: Limit activity as instructed Patient Instructions: Opioid Safety Activity Restrictions/Additional Instructions: Avoid exertional activities. Follow-up with your primary care doctor the next 2 to 3 days. Coding Level of Care Code ED [employer] for Sharmila [place]
[2021-03-19 16:01] LABS: Basophils # 0.1 10^3/uL (0.0-0.1); Basophils % 0.9 %; Eosinophils # 0.2 10^3/uL (0.0-0.8); Eosinophils % 1.9 %; Hematocrit 47.1 % (42.0-52.0); Hemoglobin 15.9 g/dL (11.7-16.6); Lymphocytes # 2.7 10^3/uL (0.8-4.8); Lymphocytes % 24.9 %; Mean Corpuscular HGB Conc 33.8 g/dL (30.0-36.0); Mean Corpuscular Hemoglobin 30.3 pg (28.0-34.0); Mean Corpuscular Volume 89.7 fl (80-94); Mean Platelet Volume 10.6 fL (7.4-10.4); Monocytes # 0.9 10^3/uL (0.2-0.9); Monocytes % 8.4 %; Neutrophils # 6.77 10^3/uL (1.8-7.7); Neutrophils % 63.7 %; Nucleated Red Blood Cells % 0 %; Platelet Count 284 10^3/cmm (130-400); Red Blood Count 5.25 10^6/uL (4.1-5.3); Red Cell Distribution Width 13.2 % (12.1-15.1); White Blood Count 10.6 10^3/uL (4.0-10.0)
[2021-03-19 16:34] LABS: Alanine Aminotransferase 8 U/L (0-41); Albumin Level 4.6 g/dL (3.5-5.2); Alkaline Phosphatase 123 IU/L (40-130); Aspartate Amino Transferase 14 U/L (0-40); Blood Urea Nitrogen 16 mg/dL (8-23); Carbon Dioxide 22 mmol/L (22-29); Chloride 103 mmol/L (98-107); Globulin 2.3 g/dL (1.3-4.6); Glomerular Filtration Rate 83.4 mL/min (90-130); Glucose 96 mg/dL (65-115); Osmolality Calculated 289 mOsm/kg (285-295); Sodium 139 mmol/L (136-145); Total Bilirubin 0.6 mg/dL (0.15-1.2); Total Protein 6.9 g/dL (6.6-8.7)
[2021-03-19 16:35] LABS: Troponin(5th) Baseline 7 ng/L (0-15)
[2021-03-19 16:43] LABS: Anion Gap 18.3 (5-19)
[2021-03-19 16:44] LABS: Potassium 4.3 mmol/L (3.5-5.1)
[2021-03-19] MEDS: ipratropium-albuterol 3 mL Neb INHALATION (17:13)
[2021-03-19 17:16] VITALS: PULSE 55; RESP 14; O2SAT 99
[2021-03-19 17:23] VITALS: BP 161/89; PULSE 62; RESP 95; O2SAT 96
[2021-03-19 17:23] LABS: ABG PCO2 45.3 mmHg (35-45); ABG PH Result 7.35 (7.35-7.45); Alveolar-Arterial Oxygen Gradi 11.9 mmHg (5-10); Arterial Blood Gas Hematocrit 48.6 % (42-52); Base Excess ABG -0.8 mmol/L (-2.0-2.0); Blood Gas Allen Test Pos; Blood Gas Sample Site Radial, left; Blood Gas Sample Type Arterial; Carboxyhemoglobin 4.1 %THgb (0.4-20.1); HCO3 ABG 25.2 mmol/L (22-26); Ionized Calcium Level - ABG 1.3 mmol/L (1.1-1.4); Methemoglobin 0.7 % (0.4-1.5); Oxygen Device NC; Oxygen Saturation ABG 96.6; PO2 ABG 77.8 mmHg (80.0-100.0); Total Hemoglobin 15.8 g/dL (14-18)
[2021-03-19 17:36] VITALS: O2SAT 93; O2SAT 94
[2021-03-19 18:12] LABS: Troponin 5 2HR 6.88 ng/L (0-15)
[2021-03-19 18:17] LABS: Troponin 5 2HR Delta -0.12 ABS# (0-10)
--- NOTE | 2021-03-19 19:05 | PC.NURSE ---
Pt arrived via EMS from home, pt reports SOB x 1 week that has been increasingly worsening the past few days. EMS gave Neb tx en route with slight improvement, pt placed onNC@3L en route. Pt reports dizziness, blood glucose 120. Pt A/O, vs taken, pt placed on monitor.
[2021-03-19 19:35] VITALS: BP 145/81; PULSE 60; RESP 18; O2SAT 93
== END 2021-03-19 19:39 | disposition home or self-care (01) ==
PROVIDERS: Emergency Provider Family Medicine; PCP Nurse Practitioner Family
DX: J44.1 Chronic obstructive pulmonary disease with (acute) exacerbation (principal); Z72.0 Tobacco use; I10 Essential (primary) hypertension
CPT/HCPCS: 36600; 71045; 80051; 80053; 82330; 82805; 84484; 85025; 93005; 94640; 96374; 99283; J2930

== ENCOUNTER 2022-03-27 12:29 | Emergency (ER) | payer MEDICARE, MEDICAID, SELFPAY ==
[2022-03-27] VITALS (45 sets, daily range): BP systolic 138–198; BP diastolic 89–119; PULSE 64–94; RESP 9–25; TEMP 37; O2SAT 93–100; BMI 24.3
--- NOTE | 2022-03-27 12:39 | ECG_ITS ---
[facility] Test Date: 2022-03-27 Pat Name: Dario Brunner Department: Room: Gender: Male Tannery Gummer: : 1950 Requested By: Romana Johnston Order Number: [id number] Royce MD: Mary Dorantes M.D. Measurements Intervals Wrights Rate: 83 P: 91 NJ: 114 QRS: 78 QRSD: 95 T: 65 QT: 353 QTc: 416 Interpretive Statements SINUS RHYTHM WITH SHORT NJ INTERVAL MODERATE VOLTAGE CRITERIA FOR LVH, CONSIDER NORMAL VARIANT [MEETS CRITERIA IN ONE OF: R(aVL), S(V1), R(V5), R(V5/V6)+S(V1)] NONSPECIFIC ST & T-WAVE ABNORMALITY Compared to ECG 03/19/2021 15:40:02 Short [place] interval now present T-wave abnormality now present Sinus bradycardia no longer present ST (T wave) deviation no longer present Electronically Signed On 03-27-2022 20:31:37 [employer] by Mary Dorantes M.D. [id number]
--- NOTE | 2022-03-27 12:39 | XRR_ITS ---
PROCEDURE INFORMATION: Exam: XR Chest Exam date and time: 03/27/2022 12:50 PM Age: 71 years old Clinical indication: Pain; Angina pectoris; Additional info: Chest pain TECHNIQUE: Imaging protocol: Radiologic exam of the chest. Views: 1 view. COMPARISON: CR XR chest 1V portable [id number] 03/19/2021 3:56 PM FINDINGS: Lungs: There is a poorly defined mass projecting in the left hilum below the left mainstem bronchus. Is increased in size since previous study and now measures about 5.5 cm in diameter. Benign calcified granulomas present in the left perihilar region. The right lung is clear. Pleural spaces: Unremarkable. No pleural effusion. No pneumothorax. Heart/Mediastinum: Heart is not enlarged. Bones/joints: Unremarkable. XR/XR chest 1V portable [id number] IMPRESSION: There is a poorly defined left hilar mass projecting below the left mainstem bronchus which is increased in size since previous study. This is suspicious for advancing malignancy. A CT scan of the chest is advised for further evaluation.
--- NOTE | 2022-03-27 12:39 | CTR_ITS ---
PROCEDURE INFORMATION: Exam: CT Neck With Contrast Exam date and time: 03/27/2022 1:54 PM Age: 71 years old Clinical indication: Dysphagia / difficulty swallowing; Additional info: Dysphagia, smoking HX TECHNIQUE: Imaging protocol: Computed tomography of the neck with contrast. Radiation optimization: All CT scans at this facility use at least one of these dose optimization techniques: automated exposure control; mA and/or kV adjustment per patient size (includes targeted exams where dose is matched to clinical indication); or iterative reconstruction. Contrast material: OMNI 350; Contrast volume: 100 ml; Contrast route: INTRAVENOUS (IV); COMPARISON: CT angio chest PE protcl [id number] 08/21/2020 10:21 PM RADIATION DOSE METRICS: Total DLP (mGy-cm): 198.41 FINDINGS: Pharynx: There is a fluid collection seen in the enlarged left tonsillar pillar. The tonsillar pillar itself measures 21 x 23 mm in the axial plane with the fluid collection measuring 17 x 19 mm. Larynx: Unremarkable. Epiglottis is normal. Prevertebral and retropharyngeal spaces: Unremarkable. Salivary glands: Normal. Glands are normal in size. Thyroid: Normal. No enlarged or calcified nodules. Lymph nodes: Numerous lymph nodes are identified bilaterally in the neck the largest which is 1 cm in the left carotid chain which is borderline enlarged per size criteria. Trachea: Visualized trachea is unremarkable. Lungs: There is a right apical spiculated lung mass measuring 14 mm image 3/117. The lungs are heterogeneous with signs of interstitial lung disease. Bones/joints: Unremarkable. No acute fracture. Soft tissues: Unremarkable. No significant soft tissue swelling. CT/CT neck w con* [id number] IMPRESSION: 1. Left-sided tonsillar pillar abscess. 2. Right apical spiculated lung mass suspicious for neoplastic process. As I have no history of cancer: Highly suspicious nodule(s). Consider non-emergent PET/CT, or tissue sampling.(Reference: Ronni) REFERENCES: Ronni Cote et al. Guidelines for Management of Incidental Pulmonary Nodules Detected on CT Images: From the Fleischner Society 2017. Radiology. 2017;284(1):228-243.
--- NOTE | 2022-03-27 12:40 | W.ED.GENADLT ---
Documented by User: EDUARDO Velez 03/27/22 15:37 HPI - General Adult General: Chief complaint: General Medical Stated complaint: SORE THROAT/ CP/ ABDOMINAL PAIN Time Seen by Provider: 03/27/22 12:32 Source: patient Mode of arrival: EMS Limitations: no limitations History of Present Illness: Patient is a 71-year-old male who presents to ED today with multiple medical complaints. His main complaint seems to be dysphagia. He is reporting left-sided neck/throat swelling and pain. He states he is in edentulous and usually eats soft foods such as mashed potatoes, eggs, Jell-O, ground hamburger meat etc. but states over the past 2 to 3 days he has not been able to eat any of it secondary to pain. He is able to hold down liquids. Patient's not noticed any change in voice/hoarseness. Patient is an every day smoker. He has a complaint of an episode of chest pain that occurred around 3 AM early this morning. He states he did take a nitroglycerin. Patient states he has had similar chest pains intermittently over the past year. He is also complaining of epigastric pain. He states this pain started after not being able to eat for 2 to 3 days. He is not having any vomiting. He is having normal bowel movements and passing flatulence. He has not been running fevers. Of note he was diagnosed with a lung mass previously but states he has not had any follow-up regarding this secondary to lack of transportation services. Pain Consistency: constant Exacerbating factors: other (swallowing) Associated symptoms: Reports chest pain (subsided now) and dyspnea (chronic-at baseline); Deny headache(s), malaise, nausea, rash, palpitations, syncope or vomiting Treatments prior to arrival: none Review of Systems Const: Denies: fever(s), chills, body aches, fatigue or malaise Eyes: Denies: change in vision, blurry vision, photophobia, floaters or seeing flashes ENMT: Reports: throat pain and odynophagia; Denies: ear or mastoid pain, nasal discharge, nasal congestion, post nasal drip or sinus pain Card: Reports: chest pain (subsided now); Denies: palpitations, irregular heart rhythm, edema, swelling of feet/ankles, lightheadedness, syncope or pre-syncope Resp: Reports: dyspnea (chronic-at baseline); Denies: wheezing, pain on inspiration, hemoptysis or chest congestion GI: Reports: abdominal pain; Denies: nausea, vomiting, diarrhea or change in bowel habits : Denies: flank pain or dysuria Musc: Denies: neck pain, back pain, extremity pain or joint pain Skin/Breast: Denies: rash Neuro: Denies: headache(s), numbness in extremities, weakness in extremities or sensory changes PFSH ED PFSH: Medical History COPD (chronic obstructive pulmonary disease) Hypertension Lung mass Schizophrenia Family History Mother Cancer Other Family history unobtainable due to orphan status Social History Smoking and tobacco status: current every day smoker (5 cigarrettes/day) cigarettes Packs smoked per day: 1 Years cigarettes smoked: 40 Alcohol intake: former Year of sobriety/quit date alcohol: 25 Physical Exam Const: COMMON NORMALS: no acute distress, patient oriented x3, no limitations, alert and well nourished GENERAL APPEARANCE: cooperative ORIENTATION/CONSCIOUSNESS: Yes awake, Yes oriented to person, Yes oriented to place and Yes oriented to time HENMT: COMMON NORMALS: normocephalic, atraumatic, external ears normal and EAC's normal HEAD & SCALP: normal to inspection, normocephalic and atraumatic EXTERNAL EAR: Yes external ears normal and Yes no periauricular adenopathy EXTERNAL AUDITORY CANAL: EAC's normal TYMPANIC MEMBRANE: TM abnormal TM laterality: left (serous otitis) MOUTH: Normal oral and palatal mucosa present, lip normal and tongue normal TEETH & GINGIVA: Yes edentulous THROAT: uvula midline and other (redness and slight enlargement of R tonsil; no abscess clinically evident) Eye: GENERAL EYE: appearance normal, both eyes and all related structures Neck/C-Spine: COMMON NORMALS: full ROM, no lymphadenopathy and no meningeal signs GENERAL: Yes normal visual inspection CERVICAL SPINE: Yes cervical ROM normal OTHER: patient with tenderness to L anterior neck; he feels area is swollen but I do not appreciate this Chest: COMMONS NORMALS: normal inspection of the chest and normal palpation of entire chest wall Resp: COMMON NORMALS: normal respiratory effort EFFORT & INSPECTION: Yes able to speak in complete sentences AUSCULTATION: rhonchi Cardio: COMMON NORMALS: regular rate and regular rhythm RATE: regular rate RHYTHM: regular rhythm GI: COMMON NORMALS: Normal to inspection, nondistended, normoactive bowel sounds present, Soft to palpation, No hepatosplenomegaly present and no masses INSPECTION: Yes normal to inspection PALPATION: Yes Soft to palpation, Yes Tenderness to palpation present (GI) (epigastric), No Guarding due to palpation present (GI), No Rigid due to palpation and Yes No hepatosplenomegaly present : COMMON NORMALS: Yes no CVA tenderness BLADDER/KIDNEY EXAM: Yes no CVA tenderness Back/Pelvis: COMMON NORMALS: no CVA tenderness, thoracic and lumbar spine normal to inspection, no thoracic nor lumbar tenderness and thoraco-lumbar ROM normal Extremity: COMMON NORMALS: normal to inspection GENERAL: Yes normal exam except as noted Neuro: TSERING COMA SCALE: document GCS findings [place] coma scale eye opening: Spontaneous [place] coma scale verbal response: Orientated [place] coma scale motor response: Obey commands [place] coma scale total score: 15 COMMON NORMALS: patient oriented x3, CN's II-XII intact bilaterally, moves all extremities, no focal motor deficits and no sensory deficits noted SENSORIUM/ORIENTATION: Yes alert, Yes oriented to person, Yes oriented to place and Yes oriented to time MENINGEAL SIGNS: Yes no meningeal signs Skin: COMMON NORMALS: no rashes or lesions noted GENERAL SKIN EXAM: no rashes or lesions noted Course Consultations: Consultation #1: Dr. Ruff-recommended IV clindamycin, RX for clindamycin and wanted to see in office today for drainage but patient could not find a ride; will graciously see patient tomorrow at 3:00pm. Vital Signs: Vital signs: Vital Signs Temperature 98.6 F 03/27/22 12:34 Pulse Rate 67 03/27/22 16:15 Respiratory Rate 18 03/27/22 16:15 Blood Pressure 162/94 03/27/22 16:20 Pulse Oximetry 97 03/27/22 16:15 Oxygen Delivery Me thod 03/27/22 12:34 [facility] - General Adult Medical Decision Making I do not see anything obviously drainable on his exam but he does have some hypertrophy and erythema to the right tonsil. CT scan of his neck showing a left-sided tonsillar pillar abscess. I discussed with Dr. Ruff, ENT who reviewed images and agrees. He wanted to see patient in office today for drainage however patient was unable to find a ride. Dr. Ruff agreed to see him tomorrow at 3 PM. Patient confirms he can find a ride at that time. He is able to hold liquids down without difficulty. He was given IV clindamycin will be sent home with a prescription. His CXR today showing increasing lung mass. He has followed up for this previously however fell through the cracks secondary to lack of transportation. Recommend he follow-up with primary care so they can try to get him back into care in regards to this. He has not had any further episodes of chest pain while here. EKG showing no ischemic changes. His baseline and repeat troponins are normal. He did present today with some epigastric discomfort. Abdomen is nonsurgical on exam. He states this has improved during his stay. Lab Data 03/27/22 12:46 03/27/22 12:46 Radiology Impressions Chest X-Ray 03/27/22 12:39 IMPRESSION: There is a poorly defined left hilar mass projecting below the left mainstem bronchus which is increased in size since previous study. This is suspicious for advancing malignancy. A CT scan of the chest is advised for further evaluation. Neck CT 03/27/22 12:39 IMPRESSION: 1. Left-sided tonsillar pillar abscess. 2. Right apical spiculated lung mass suspicious for neoplastic process. As I have no history of cancer: Highly suspicious nodule(s). Consider non-emergent PET/CT, or tissue sampling.(Reference: Ronni) REFERENCES: Ronni Cote, et al. Guidelines for Management of Incidental Pulmonary Nodules Detected on CT Images: From the Fleischner Society 2017. Radiology. 2017;284(1):228-243. ADDENDUM: 03/27/22 8257 THIS REPORT CONTAINS FINDINGS THAT MAY BE CRITICAL TO PATIENT CARE. The findings were verbally communicated by me to Romana Johnston at 2:29 PM CREDIT ADMINISTRATOR on 03/27/2022. The findings were acknowledged and understood. The patient does have a history of lung masses. The lesion in the left tonsillar pillar could be a metastatic focus. There may be a smaller lesion seen in the right tonsillar pillar measuring 4 mm on image 4/56. This is indeterminate whether it is a neoplasm or infection. Laboratory Results WBC 11.3 10^3/uL (4.0-10.0) H 03/27/22 12:46 RBC 5.30 10^6/uL (4.1-5.3) 03/27/22 12:46 Hgb 15.1 g/dL (11.7-16.6) 03/27/22 12:46 Hct 46.0 % (42.0-52.0) 03/27/22 12:46 MCV 86.8 fl (80-94) 03/27/22 12:46 MCH 28.5 pg (28.0-34.0) 03/27/22 12:46 MCHC 32.8 g/dL (30.0-36.0) 03/27/22 12:46 RDW 13.4 % (12.1-15.1) 03/27/22 12:46 Plt Count 319 10^3/cmm (130-400) 03/27/22 12:46 MPV 10.1 fL (7.4-10.4) 03/27/22 12:46 Neut % (Auto) 68.2 % 03/27/22 12:46 Lymph % (Auto) 19.9 % 03/27/22 12:46 [place] % (Auto) 10.2 % 03/27/22 12:46 Eos % (Auto) 0.8 % 03/27/22 12:46 Baso % (Auto) 0.6 % 03/27/22 12:46 Neut # (Auto) 7.67 10^3/uL (1.8-7.7) 03/27/22 12:46 Lymph # (Auto) 2.2 10^3/uL (0.8-4.8) 03/27/22 12:46 [place] # (Auto) 1.2 10^3/uL (0.2-0.9) H 03/27/22 12:46 Eos # (Auto) 0.1 10^3/uL (0.0-0.8) 03/27/22 12:46 Baso # (Auto) 0.1 10^3/uL (0.0-0.1) 03/27/22 12:46 Nucleated RBC % (auto) 0 % 03/27/22 12:46 Nucleated RBCs # 0.0 /100WBC 03/27/22 12:46 Sodium 137 mmol/L (136-145) 03/27/22 12:46 Potassium 3.8 mmol/L (3.5-5.1) 03/27/22 12:46 Chloride 99 mmol/L (98-107) 03/27/22 12:46 Carbon Dioxide 26 mmol/L (22-29) 03/27/22 12:46 Anion Gap 15.8 (5-19) 03/27/22 12:46 BUN 9 mg/dL (8-23) 03/27/22 12:46 Creatinine 0.8 mg/dL (0.7-1.2) 03/27/22 12:46 GFR Calculation Not Reportable 03/27/22 12:46 Glucose 97 mg/dL (65-115) 03/27/22 12:46 Calculated Osmolality 283 mOsm/kg (285-295) L 03/27/22 12:46 Calcium 9.3 mg/dL (8.5-10.5) 03/27/22 12:46 Total Bilirubin 0.7 mg/dL (0.15-1.2) 03/27/22 12:46 AST 10 U/L (0-40) 03/27/22 12:46 ALT 6 U/L (0-41) 03/27/22 12:46 Alkaline Phosphatase 124 U/L (40-130) 03/27/22 12:46 Troponin T Baseline 10 ng/L (0-15) 03/27/22 12:46 Troponin T 120 Minute 10.56 ng/L (0-15) 03/27/22 14:50 Delta Troponin T 0.56 ABS# (0-10) 03/27/22 14:50 Total Protein 7.4 g/dL (6.6-8.7) 03/27/22 12:46 Albumin 4.2 g/dL (3.5-5.2) 03/27/22 12:46 Globulin 3.2 g/dL (1.3-4.6) 03/27/22 12:46 Lipase 28 U/L (13-60) 03/27/22 12:46 Discharge Plan Discharge Patient Disposition: Home Clinical Impression: Peritonsillar abscess, Lung mass Condition: Stable Prescriptions: New clindamycin HCl 300 mg capsule 300 mg PO Q6H 7 Days Qty: 28 0RF Discharge Orders: Discharge ED (Routine); Ordered 03/27/22 Ordered By: Romana Johnston Referrals: Todd Ruff MD [Physician] - Arellano,DEB Capone [Primary Care Provider] - Patient Instructions: Peritonsillar Abscess (ED), Peritonsillar Abscess (DC) Activity Restrictions/Additional Instructions: As we discussed you have an appointment with ENT physician Dr. Joyce tomorrow at 3 PM. Is is imperative that you make this appointment so he can drain the abscess in your throat. You need to urgently follow-up with your primary care provider so they can make necessary arrangements for further evaluation in regards to your abnormal imaging/lung mass. Coding Level of Care Code ED Appliance Adjuster for Chg Fwd Exam Comprehensive Documented by User: Elias Daniels DO 03/28/22 06:39 HPI - General Adult General: Chief complaint: General Medical Stated complaint: SORE THROAT/ CP/ ABDOMINAL PAIN Time Seen by Provider: 03/27/22 12:32 [facility] ED PFSH: Medical History COPD (chronic obstructive pulmonary disease) Hypertension Lung mass Schizophrenia Family History Mother Cancer Other Family history unobtainable due to orphan status Social History Smoking and tobacco status: current every day smoker (5 cigarrettes/day) cigarettes Packs smoked per day: 1 Years cigarettes smoked: 40 Alcohol intake: former 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 CT scan of his neck showing a left-sided tonsillar pillar abscess. I discussed with Dr. Ruff, ENT who reviewed images and agrees. He wanted to see patient in office today for drainage however patient was unable to find a ride. Dr. Ruff agreed to see him tomorrow at 3 PM. Patient confirms he can find a ride at that time. He is able to hold liquids down without difficulty. He was given IV clindamycin will be sent home with a prescription. His CXR today showing increasing lung mass. He has followed up for this previously however fell through the cracks secondary to lack of transportation. Recommend he follow-up with primary care so they can try to get him back into care in regards to this. He has not had any further episodes of chest pain while here. EKG showing no ischemic changes. His baseline and repeat troponins are normal. He did present today with some epigastric discomfort. Abdomen is nonsurgical on exam. He states this has improved during his stay. Chart reviewed and patient discussed with midlevel. Agree with assessment and plan. Lab Data 03/27/22 12:46 03/27/22 12:46 Radiology Impressions Chest X-Ray 03/27/22 12:39 IMPRESSION: There is a poorly defined left hilar mass projecting below the left mainstem bronchus which is increased in size since previous study. This is suspicious for advancing malignancy. A CT scan of the chest is advised for further evaluation. Neck CT 03/27/22 12:39 IMPRESSION: 1. Left-sided tonsillar pillar abscess. 2. Right apical spiculated lung mass suspicious for neoplastic process. As I have no history of cancer: Highly suspicious nodule(s). Consider non-emergent PET/CT, or tissue sampling.(Reference: Ronni) REFERENCES: Ronni Cote et al. Guidelines for Management of Incidental Pulmonary Nodules Detected on CT Images: From the Fleischner Society 2017. Radiology. 2017;284(1):228-243. ADDENDUM: 03/27/22 1433 THIS REPORT CONTAINS FINDINGS THAT MAY BE CRITICAL TO PATIENT CARE. The findings were verbally communicated by me to Romana Johnston at 2:29 PM CREDIT ADMINISTRATOR on 03/27/2022. The findings were acknowledged and understood. The patient does have a history of lung masses. The lesion in the left tonsillar pillar could be a metastatic focus. There may be a smaller lesion seen in the right tonsillar pillar measuring 4 mm on image 4/56. This is indeterminate whether it is a neoplasm or infection. Laboratory Results WBC 11.3 10^3/uL (4.0-10.0) H 03/27/22 12:46 RBC 5.30 10^6/uL (4.1-5.3) 03/27/22 12:46 Hgb 15.1 g/dL (11.7-16.6) 03/27/22 12:46 Hct 46.0 % (42.0-52.0) 03/27/22 12:46 MCV 86.8 fl (80-94) 03/27/22 12:46 MCH 28.5 pg (28.0-34.0) 03/27/22 12:46 MCHC 32.8 g/dL (30.0-36.0) 03/27/22 12:46 RDW 13.4 % (12.1-15.1) 03/27/22 12:46 Plt Count 319 10^3/cmm (130-400) 03/27/22 12:46 MPV 10.1 fL (7.4-10.4) 03/27/22 12:46 Neut % (Auto) 68.2 % 03/27/22 12:46 Lymph % (Auto) 19.9 % 03/27/22 12:46 [place] % (Auto) 10.2 % 03/27/22 12:46 Eos % (Auto) 0.8 % 03/27/22 12:46 Baso % (Auto) 0.6 % 03/27/22 12:46 Neut # (Auto) 7.67 10^3/uL (1.8-7.7) 03/27/22 12:46 Lymph # (Auto) 2.2 10^3/uL (0.8-4.8) 03/27/22 12:46 [place] # (Auto) 1.2 10^3/uL (0.2-0.9) H 03/27/22 12:46 Eos # (Auto) 0.1 10^3/uL (0.0-0.8) 03/27/22 12:46 Baso # (Auto) 0.1 10^3/uL (0.0-0.1) 03/27/22 12:46 Nucleated RBC % (auto) 0 % 03/27/22 12:46 Nucleated RBCs # 0.0 /100WBC 03/27/22 12:46 Sodium 137 mmol/L (136-145) 03/27/22 12:46 Potassium 3.8 mmol/L (3.5-5.1) 03/27/22 12:46 Chloride 99 mmol/L (98-107) 03/27/22 12:46 Carbon Dioxide 26 mmol/L (22-29) 03/27/22 12:46 Anion Gap 15.8 (5-19) 03/27/22 12:46 BUN 9 mg/dL (8-23) 03/27/22 12:46 Creatinine 0.8 mg/dL (0.7-1.2) 03/27/22 12:46 GFR Calculation Not Reportable 03/27/22 12:46 Glucose 97 mg/dL (65-115) 03/27/22 12:46 Calculated Osmolality 283 mOsm/kg (285-295) L 03/27/22 12:46 Calcium 9.3 mg/dL (8.5-10.5) 03/27/22 12:46 Total Bilirubin 0.7 mg/dL (0.15-1.2) 03/27/22 12:46 AST 10 U/L (0-40) 03/27/22 12:46 ALT 6 U/L (0-41) 03/27/22 12:46 Alkaline Phosphatase 124 U/L (40-130) 03/27/22 12:46 Troponin T Baseline 10 ng/L (0-15) 03/27/22 12:46 Troponin T 120 Minute 10.56 ng/L (0-15) 03/27/22 14:50 Delta Troponin T 0.56 ABS# (0-10) 03/27/22 14:50 Total Protein 7.4 g/dL (6.6-8.7) 03/27/22 12:46 Albumin 4.2 g/dL (3.5-5.2) 03/27/22 12:46 Globulin 3.2 g/dL (1.3-4.6) 03/27/22 12:46 Lipase 28 U/L (13-60) 03/27/22 12:46 Discharge Plan Discharge Patient Disposition: Home Clinical Impression: Peritonsillar abscess, Lung mass Condition: Stable Prescriptions: New clindamycin HCl 300 mg capsule 300 mg PO Q6H 7 Days Qty: 28 0RF Discharge Orders: Discharge ED (Routine); Ordered 03/27/22 Ordered By: Romana Johnston Referrals: Todd Ruff MD [Physician] - Estelita Arellano APN [Primary Care Provider] - Patient Instructions: Peritonsillar Abscess (ED), Peritonsillar Abscess (DC) Activity Restrictions/Additional Instructions: As we discussed you have an appointment with ENT physician Dr. Joyce tomorrow at 3 PM. Is is imperative that you make this appointment so he can drain the abscess in your throat. You need to urgently follow-up with your primary care provider so they can make necessary arrangements for further evaluation in regards to your abnormal imaging/lung mass. Coding Level of Care Code ED Appliance Adjuster for Chg Fwd Exam Comprehensive
--- NOTE | 2022-03-27 12:47 | PC.PHAR ---
pt states he takes no rx or otc medications-pt states a berta hernandezd his carvedilol 12.5mg bid last filled 05/10/21 30d/s and amlodipine 5mg daily last filled 05/10/21 months ago pt states he doesnt have an albuterol inhaler rx written 03/19/21 from a er
[2022-03-27 12:55] LABS: Basophils # 0.1 10^3/uL (0.0-0.1); Basophils % 0.6 %; Eosinophils # 0.1 10^3/uL (0.0-0.8); Eosinophils % 0.8 %; Hemoglobin 15.1 g/dL (11.7-16.6); Lymphocytes # 2.2 10^3/uL (0.8-4.8); Lymphocytes % 19.9 %; Mean Corpuscular HGB Conc 32.8 g/dL (30.0-36.0); Mean Corpuscular Hemoglobin 28.5 pg (28.0-34.0); Mean Corpuscular Volume 86.8 fl (80-94); Mean Platelet Volume 10.1 fL (7.4-10.4); Monocytes # 1.2 10^3/uL (0.2-0.9); Monocytes % 10.2 %; Neutrophils # 7.67 10^3/uL (1.8-7.7); Neutrophils % 68.2 %; Nucleated Red Blood Cells % 0 %; Platelet Count 319 10^3/cmm (130-400); Red Cell Distribution Width 13.4 % (12.1-15.1); White Blood Count 11.3 10^3/uL (4.0-10.0)
[2022-03-27 13:23] LABS: Troponin(5th) Baseline 10 ng/L (0-15)
[2022-03-27 13:25] LABS: Alanine Aminotransferase 6 U/L (0-41); Albumin Level 4.2 g/dL (3.5-5.2); Alkaline Phosphatase 124 U/L (40-130); Anion Gap 15.8 (5-19); Aspartate Amino Transferase 10 U/L (0-40); Blood Urea Nitrogen 9 mg/dL (8-23); Calcium 9.3 mg/dL (8.5-10.5); Carbon Dioxide 26 mmol/L (22-29); Chloride 99 mmol/L (98-107); Globulin 3.2 g/dL (1.3-4.6); Glucose 97 mg/dL (65-115); Lipase 28 U/L (13-60); Osmolality Calculated 283 mOsm/kg (285-295); Potassium 3.8 mmol/L (3.5-5.1); Sodium 137 mmol/L (136-145); Total Bilirubin 0.7 mg/dL (0.15-1.2); Total Protein 7.4 g/dL (6.6-8.7)
[2022-03-27] MEDS: iohexol 350 mg/mL 500 mL Btl (per mL) IV (13:57)
--- NOTE | 2022-03-27 14:39 | ECG_ITS ---
[facility] Test Date: 2022-03-27 Pat Name: Dario Brunner Department: Room: Gender: Male Surgical Resident: : 1950 Requested By: Romana Johnston Order Number: [id number] Royce MD: Mary Dorantes M.D. Measurements Intervals [place] Rate: 77 P: 79 [place]: 127 QRS: 74 QRSD: 96 T: 63 QT: 372 QTc: 422 Interpretive Statements SINUS RHYTHM MODERATE VOLTAGE CRITERIA FOR LVH, CONSIDER NORMAL VARIANT [MEETS CRITERIA IN ONE OF: R(aVL), S(V1), R(V5), R(V5/V6)+S(V1)] MODERATE ST DEPRESSION [0.05+ mV ST DEPRESSION] Compared to ECG 03/27/2022 12:55:27 ST (T wave) deviation now present Short [place] interval no longer present T-wave abnormality no longer present Electronically Signed On 03-27-2022 20:37:44 SENIOR STRATEGY ANALYST by Mary Dorantes M.D. [id number]
[2022-03-27] MEDS: carvedilol 12.5 mg Tablet PO (15:01)
[2022-03-27] MEDS: enalaprilat 1.25 mg/mL Inj IVP (15:02)
[2022-03-27] MEDS: clindamycin 600 MG/50 ML PREMIX 100 MG IV (15:29)
[2022-03-27 15:31] LABS: Troponin 5 2HR 10.56 ng/L (0-15)
[2022-03-27 16:21] LABS: Troponin 5 2HR Delta 0.56 ABS# (0-10)
== END 2022-03-27 16:24 | disposition home or self-care (01) ==
PROVIDERS: Emergency Provider Physician Assistant; PCP Nurse Practitioner Family
DX: J36 Peritonsillar abscess (principal); R91.8 Other nonspecific abnormal finding of lung field; J44.9 Chronic obstructive pulmonary disease, unspecified; I10 Essential (primary) hypertension; F17.210 Nicotine dependence, cigarettes, uncomplicated
CPT/HCPCS: 36415; 70491; 71045; 80053; 83690; 84484; 85025; 93005; 96374; 99285; J3490; Q9967

== ENCOUNTER 2022-08-09 18:59 | Emergency (ER) | payer MEDICARE, MEDICAID, SELFPAY ==
--- NOTE | 2022-08-09 19:04 | XRR_ITS ---
PROCEDURE INFORMATION: Exam: XR Chest Exam date and time: 08/09/2022 7:11 PM Age: 71 years old Clinical indication: Pain; Chest pressure; Additional info: Cp TECHNIQUE: Imaging protocol: Radiologic exam of the chest. Views: 1 view. COMPARISON: CR XR chest 1V portable [id number] 03/27/2022 12:50 PM FINDINGS: Lungs: Increase in mass density around the left hilum is seen in relation to prior exam. This now measures approximately 7.5 cm in right to left diameter and approximally 5.5 cm in superior to inferior diameter. Findings suggest interval increase in left hilar mass from prior exam. COPD change with small amount of upper lobe scarring. Mild increased interstitial prominence in the left lung base suggestive mild interstitial infiltrate or pneumonitis. Rounded partially calcified granulomas again seen inferior upper left lung, as noted with prior exam. Pleural spaces: No significant effusion, with possible trace effusion versus mild pleural thickening left costophrenic angle. This is unchanged with prior exam. No pneumothorax. Heart/Mediastinum: Unremarkable. No cardiomegaly. Bones/joints: Visualized osseous structures show no acute abnormality. XR/XR chest 1V portable [id number] IMPRESSION: 1. Increase in size of left hilar mass from prior exam as noted above. 2. COPD with small amount upper lobe scarring, with suggestion of mild interstitial infiltrate or pneumonitis in the left lung base with today's exam.
--- NOTE | 2022-08-09 19:04 | ECG_ITS ---
[facility] Test Date: 2022-08-09 Pat Name: Dario Brunner Department: Room: Gender: Male Cruise Staff Member: : 1950 Requested By: Yuly Doan Order Number: [id number] Royce MD: Mary Dorantes M.D. Measurements Intervals [place] Rate: 72 P: 87 [place]: 113 QRS: 83 QRSD: 93 T: 84 QT: 373 QTc: 408 Interpretive Statements SINUS RHYTHM WITH SHORT [place] INTERVAL MODERATE ST DEPRESSION [0.05+ mV ST DEPRESSION] Compared to ECG 03/27/2022 15:07:32 Short [place] interval now present ST (T wave) deviation still present Electronically Signed On 08-09-2022 22:25:56 CDT by Mary Dorantes M.D. [id number]
[2022-08-09 19:10] VITALS: BP 160/93; PULSE 78; RESP 20; TEMP 37.1; O2SAT 98; BMI 19.9
--- NOTE | 2022-08-09 19:10 | W.ED.CHESTPA ---
HPI - Chest Pain General: Chief Complaint: Chest Pain Stated Complaint: CP Time Seen by Provider: 08/09/22 19:05 Source: patient and EMS Mode of arrival: EMS Limitations: no limitations History of Present Illness: 71-year-old male states he has been having some chest and abdominal pain over the last 2 days he states he had a sharp pain in his abdomen and his chest. He denies any shortness of breath denies any vomiting or diaphoresis. He denies any worsening improving factors. Rates his pain currently a 5 out of 10. Associated symptoms: Reports abdominal pain; Deny dyspnea, fever(s), nausea or vomiting Review of Systems Const: Denies: fever(s) or chills ENMT: Denies: throat pain or dental pain Card: Reports: chest pain Resp: Denies: dyspnea GI: Reports: abdominal pain; Denies: nausea, vomiting or diarrhea : Denies: dysuria Musc: Denies: neck pain or back pain Skin/Breast: Denies: rash Neuro: Denies: headache(s) PFSH ED PFSH: Medical History COPD (chronic obstructive pulmonary disease) Hypertension Lung mass Schizophrenia Family History Mother Cancer Other Family history unobtainable due to orphan status Social History Smoking and tobacco status: current every day smoker (5 cigarrettes/day) cigarettes Packs smoked per day: 1 Years cigarettes smoked: 40 Alcohol intake: former Year of sobriety/quit date alcohol: 25 Substance/Drug Use: never Physical Exam Const: COMMON NORMALS: no acute distress, patient oriented x3 and healthy appearing HENMT: COMMON NORMALS: normocephalic and atraumatic HEAD & SCALP: normocephalic and atraumatic Eye: COMMON NORMALS: conjunctivae normal CONJUNCTIVA: Yes conjunctivae normal Neck/C-Spine: COMMON NORMALS: full ROM and supple Chest: COMMONS NORMALS: normal inspection of the chest and normal palpation of entire chest wall Resp: COMMON NORMALS: normal respiratory effort, No retractions, No use of accessory muscles and clear to auscultation bilaterally AUSCULTATION: clear to auscultation bilaterally Cardio: COMMON NORMALS: regular rate, regular rhythm and No murmurs present (Cardio) RATE: regular rate RHYTHM: regular rhythm GI: COMMON NORMALS: Normal to inspection, nondistended, normoactive bowel sounds present, Soft to palpation, non-tender and no masses PALPATION: Yes Soft to palpation Extremity: COMMON NORMALS: normal to inspection and full ROM Neuro: COMMON NORMALS: patient oriented x3, moves all extremities and no focal motor deficits Psych: COMMON NORMALS: mental status grossly normal, Normal thought process present and cooperative THOUGHT PROCESS: Normal thought process present Skin: COMMON NORMALS: no rashes or lesions noted and no wounds GENERAL SKIN EXAM: no rashes or lesions noted Course Vital Signs: Vital signs: Vital Signs Temperature 98.7 F 08/09/22 19:10 Pulse Rate 59 L 08/09/22 21:30 Respiratory Rate 15 08/09/22 21:30 Blood Pressure 161/59 08/09/22 21:30 Pulse Oximetry 96 08/09/22 21:30 Oxygen Delivery Me thod Room Air 08/09/22 19:17 MDM - Chest Pain Medical Decision Making Patient presents here with chest pains atypical in nature his lung mass is grown he has not followed up we will get him follow-up with pulmonology he has no signs of pulm embolism or dissection his blood work here is all normal no sign of acute coronary syndrome he is to follow-up with pulmonology and return if worsening Medical Records I reviewed the patient's medical records. Lab Data I reviewed the patient's lab results. 08/09/22 19:17 08/09/22 01:09 Radiology Impressions Chest X-Ray 08/09/22 19:04 IMPRESSION: 1. Increase in size of left hilar mass from prior exam as noted above. 2. COPD with small amount upper lobe scarring, with suggestion of mild interstitial infiltrate or pneumonitis in the left lung base with today's exam. Laboratory Results WBC 8.8 10^3/uL (4.0-10.0) 08/09/22 19:17 RBC 4.87 10^6/uL (4.1-5.3) 08/09/22 19:17 Hgb 14.0 g/dL (11.7-16.6) 08/09/22 19:17 Hct 43.5 % (42.0-52.0) 08/09/22 19:17 MCV 89.3 fl (80-94) 08/09/22 19:17 MCH 28.7 pg (28.0-34.0) 08/09/22 19:17 MCHC 32.2 g/dL (30.0-36.0) 08/09/22 19:17 RDW 13.1 % (12.1-15.1) 08/09/22 19:17 Plt Count 289 10^3/cmm (130-400) 08/09/22 19:17 MPV 10.2 fL (7.4-10.4) 08/09/22 19:17 Neut % (Auto) 62.3 % 08/09/22 19:17 Lymph % (Auto) 25.2 % 08/09/22 19:17 [place] % (Auto) 9.8 % 08/09/22 19:17 Eos % (Auto) 1.6 % 08/09/22 19:17 Baso % (Auto) 0.9 % 08/09/22 19:17 Neut # (Auto) 5.46 10^3/uL (1.8-7.7) 08/09/22 19:17 Lymph # (Auto) 2.2 10^3/uL (0.8-4.8) 08/09/22 19:17 [place] # (Auto) 0.9 10^3/uL (0.2-0.9) 08/09/22 19:17 Eos # (Auto) 0.1 10^3/uL (0.0-0.8) 08/09/22 19:17 Baso # (Auto) 0.1 10^3/uL (0.0-0.1) 08/09/22 19:17 Nucleated RBC % (auto) 0 % 08/09/22 19:17 Nucleated RBCs # 0.0 /100WBC 08/09/22 19:17 PT 14.00 SECONDS (12.1-14.9) 08/09/22 19:17 INR 1.05 (0.8-1.2) 08/09/22 19:17 Sodium 139 mmol/L (136-145) 08/09/22 01:09 Potassium 3.8 mmol/L (3.5-5.1) 08/09/22 01:09 Chloride 100 mmol/L (98-107) 08/09/22 01:09 Carbon Dioxide 29 mmol/L (22-29) 08/09/22 01:09 Anion Gap 13.8 (5-19) 08/09/22 01:09 BUN 9 mg/dL (8-23) 08/09/22 01:09 Creatinine 0.9 mg/dL (0.7-1.2) 08/09/22 01:09 GFR Calculation Not Reportable 08/09/22 01:09 Glucose 107 mg/dL (65-115) 08/09/22 01:09 Calculated Osmolality 287 mOsm/kg (285-295) 08/09/22 01:09 Calcium 8.6 mg/dL (8.5-10.5) 08/09/22 01:09 Total Bilirubin 0.3 mg/dL (0.15-1.2) 08/09/22 01:09 AST 10 U/L (0-40) 08/09/22 01:09 ALT 7 U/L (0-41) 08/09/22 01:09 Alkaline Phosphatase 109 U/L (40-130) 08/09/22 01:09 Troponin T Baseline 9 ng/L (0-15) 08/09/22 19:17 Troponin T 120 Minute 9.73 ng/L (0-15) 08/09/22 21:24 Delta Troponin T 0.73 ABS# (0-10) 08/09/22 21:24 Total Protein 6.5 g/dL (6.6-8.7) L 08/09/22 01:09 Albumin 3.8 g/dL (3.5-5.2) 08/09/22 01:09 Globulin 2.7 g/dL (1.3-4.6) 08/09/22 01:09 Lipase 41 U/L (13-60) 08/09/22 01:09 EKG Data EKG 1: I personally reviewed and interpreted this EKG as follows: EKG interpretation date: 08/09/22 EKG interpretation time: 19:14 Interpretation: nsr hr [address] or t wave abnormalities qrs 93 qtc 396 Discharge Plan Discharge Patient Disposition: Home Clinical Impression: Lung mass, Chest pain Condition: Stable Prescriptions: New hydrocodone-acetaminophen 5-325 mg tablet 1 tab PO Q6H PRN (Reason: pain) Qty: 14 0RF ondansetron 4 mg tablet,disintegrating 4 mg PO Q6H PRN (Reason: nausea and vomiting) Qty: 14 0RF Discharge Orders: Discharge ED (Routine); Ordered 08/09/22 Ordered By: Yuly Doan Referrals: DatarChet MD [Physician] - 1-3 days Arellano,DEB Capone [Primary Care Provider] - Discharge Diet: Advance as tolerated Discharge Activity: Resume usual activity Patient Instructions: Chest Pain (ED), Opioid Safety Coding Level of Care Code ED Deep Fryer Assembler for Sharmila Camarillo
[2022-08-09 19:17] VITALS: BP 154/74; PULSE 68; RESP 16; O2SAT 96
[2022-08-09 19:21] VITALS: RESP 16
[2022-08-09] MEDS: morphine 4 mg/mL SDV 1 mL IVP (19:21)
[2022-08-09] MEDS: ondansetron 2 mg/ML SDV 2 mL 4 MG IVP (19:22)
[2022-08-09 19:28] LABS: Basophils # 0.1 10^3/uL (0.0-0.1); Basophils % 0.9 %; Eosinophils # 0.1 10^3/uL (0.0-0.8); Eosinophils % 1.6 %; Hematocrit 43.5 % (42.0-52.0); Lymphocytes # 2.2 10^3/uL (0.8-4.8); Lymphocytes % 25.2 %; Mean Corpuscular HGB Conc 32.2 g/dL (30.0-36.0); Mean Corpuscular Hemoglobin 28.7 pg (28.0-34.0); Mean Corpuscular Volume 89.3 fl (80-94); Mean Platelet Volume 10.2 fL (7.4-10.4); Monocytes # 0.9 10^3/uL (0.2-0.9); Monocytes % 9.8 %; Neutrophils # 5.46 10^3/uL (1.8-7.7); Neutrophils % 62.3 %; Nucleated Red Blood Cells % 0 %; Platelet Count 289 10^3/cmm (130-400); Red Blood Count 4.87 10^6/uL (4.1-5.3); Red Cell Distribution Width 13.1 % (12.1-15.1); White Blood Count 8.8 10^3/uL (4.0-10.0)
[2022-08-09 19:51] LABS: INR 1.05 (0.8-1.2)
[2022-08-09 19:54] LABS: Troponin(5th) Baseline 9 ng/L (0-15)
[2022-08-09 19:56] LABS: Alanine Aminotransferase 7 U/L (0-41); Albumin Level 3.8 g/dL (3.5-5.2); Alkaline Phosphatase 109 U/L (40-130); Anion Gap 13.8 (5-19); Aspartate Amino Transferase 10 U/L (0-40); Blood Urea Nitrogen 9 mg/dL (8-23); Calcium 8.6 mg/dL (8.5-10.5); Carbon Dioxide 29 mmol/L (22-29); Chloride 100 mmol/L (98-107); Globulin 2.7 g/dL (1.3-4.6); Glucose 107 mg/dL (65-115); Lipase 41 U/L (13-60); Osmolality Calculated 287 mOsm/kg (285-295); Potassium 3.8 mmol/L (3.5-5.1); Sodium 139 mmol/L (136-145); Total Bilirubin 0.3 mg/dL (0.15-1.2); Total Protein 6.5 g/dL (6.6-8.7)
[2022-08-09 20:17] VITALS: BP 144/68; PULSE 63; RESP 18; O2SAT 97
--- NOTE | 2022-08-09 21:15 | ECG_ITS ---
[facility] Test Date: 2022-08-09 Pat Name: Dario Brunner Department: Room: Gender: Male Nurse Practitioner Home Assessments: : 1950 Requested By: Yuly Doan Order Number: [id number] Royce MD: Mary Dorantes M.D. Measurements Intervals Dickey Rate: 57 P: 88 OK: 128 QRS: 76 QRSD: 102 T: 70 QT: 408 QTc: 398 Interpretive Statements SINUS BRADYCARDIA WITH SINUS ARRHYTHMIA VOLTAGE CRITERIA FOR LVH [MEETS CRITERIA IN ONE OF: R(aVL), S(V1), R(V5), R(V5/V6)+S(V1)] Compared to ECG 08/09/2022 19:14:11 Left ventricular hypertrophy now present Sinus rhythm no longer present Short OK interval no longer present ST (T wave) deviation no longer present Electronically Signed On 08-09-2022 22:54:06 CDT by Mary Dorantes M.D. [id number]
[2022-08-09 21:30] VITALS: BP 161/59; PULSE 59; RESP 15; O2SAT 96
[2022-08-09 21:57] LABS: Troponin 5 2HR 9.73 ng/L (0-15)
[2022-08-09 22:03] LABS: Troponin 5 2HR Delta 0.73 ABS# (0-10)
[2022-08-09 22:08] VITALS: BP 143/80; PULSE 63; RESP 16; O2SAT 97
--- NOTE | 2022-08-10 11:00 | PC.NURSE ---
Addendum entered by Lulu Bhakta 09/22/22 10:05: This appointment was cancelled Addendum entered by Lulu Bhakta 08/31/22 11:33: Patient has a follow up appointment scheduled for Monday, September 05, 2022 at 12:[address] London at [facility]. Addendum entered by Lulu Bhakta 08/22/22 10:17: greenhouse manager received the following message from the pulmonology clinic regarding follow up appointment: Dr.. Marino will not be in office until 08/28. On Francy 1:49p August 10, 2022 La Willis (Covering For: Pulmonology Front Office) Wrote To: Pulmonology Front Office Will have review when he gets back in office on 08/21/22 Addendum entered by Lulu Bhakta 08/15/22 12:34: greenhouse manager received the following message from pulmonology regarding follow up appointment: Will have review when he gets back in office on 08/21/22 Original Note: Patient seen in the ED and referred to Dr. Marino for lung mass. TCM sent message to call pt with an appt.
== END 2022-08-09 22:09 | disposition home or self-care (01) ==
PROVIDERS: Emergency Provider Emergency Medicine; PCP Nurse Practitioner Family
DX: R07.9 Chest pain, unspecified (principal); R91.8 Other nonspecific abnormal finding of lung field; J44.9 Chronic obstructive pulmonary disease, unspecified; I10 Essential (primary) hypertension; F17.210 Nicotine dependence, cigarettes, uncomplicated
CPT/HCPCS: 36415; 71045; 80053; 83690; 84484; 85025; 85610; 93005; 96374; 96375; 99285; J2270; J2405

== ENCOUNTER 2022-08-23 21:43 | Emergency (ER) | payer MEDICARE, MEDICAID, SELFPAY ==
[2022-08-23 21:44] VITALS: BP 122/68; PULSE 88; RESP 14; TEMP 36.7; O2SAT 94; BMI 19.9
--- NOTE | 2022-08-23 21:45 | XRR_ITS ---
PROCEDURE INFORMATION: Exam: XR Chest Exam date and time: 08/23/2022 9:50 PM Age: 71 years old Clinical indication: Shortness of breath; Additional info: SOB TECHNIQUE: Imaging protocol: Radiologic exam of the chest. Views: 1 view. COMPARISON: CR (CHEST, ) 08/09/2022 7:11 PM FINDINGS: Lungs: Left again hilar mass again seen measuring up to 7.5 cm, further evaluation with chest CT advised. Left lower lobe pneumonia. Emphysematous changes. Left upper lobe 12 mm calcified granuloma, similar to prior exams. Pleural spaces: Unremarkable. No pleural effusion. No pneumothorax. Heart/Mediastinum: Unremarkable. No cardiomegaly. Bones/joints: Unremarkable. XR/XR chest 1V portable [id number] IMPRESSION: 1. Left again hilar mass again seen measuring up to 7.5 cm, further evaluation with chest CT advised. 2. Left lower lobe pneumonia. 3. Emphysematous changes. 4. Left upper lobe 12 mm calcified granuloma, similar to prior exams.
--- NOTE | 2022-08-23 21:47 | ECG_ITS ---
[facility] Test Date: 2022-08-23 Pat Name: Dario Brunner Department: Room: Gender: Male Parts Representative: : 1950 Requested By: Yuly Doan Order Number: [id number] Royce MD: Lex Palm M.D. Measurements Intervals Lilly Rate: 84 P: 86 MN: 111 QRS: 78 QRSD: 97 T: 77 QT: 355 QTc: 420 Interpretive Statements SINUS RHYTHM WITH SHORT MN INTERVAL MINIMAL VOLTAGE CRITERIA FOR LVH, CONSIDER NORMAL VARIANT [MEETS CRITERIA IN ONE OF: R(aVL), S(V1), R(V5), R(V5/V6)+S(V1)] MINIMAL ST DEPRESSION [0.025+ mV ST DEPRESSION] Compared to ECG 08/09/2022 21:15:29 Short MN interval now present ST (T wave) deviation now present Sinus bradycardia no longer present Sinus arrhythmia no longer present Electronically Signed On 08-24-2022 15:41:15 CDT by Lex Palm M.D. [id number]
[2022-08-23 21:54] VITALS: BP 122/68; PULSE 89; O2SAT 93
--- NOTE | 2022-08-23 21:56 | CTR_ITS ---
PROCEDURE INFORMATION: Exam: CT Abdomen And Pelvis With Contrast Exam date and time: 08/23/2022 10:08 PM Age: 71 years old Clinical indication: Abdominal pain; Generalized; Patient HX: C/O diffuse abd pain. History of lung mass. TECHNIQUE: Imaging protocol: Computed tomography of the abdomen and pelvis with contrast. Radiation optimization: All CT scans at this facility use at least one of these dose optimization techniques: automated exposure control; mA and/or kV adjustment per patient size (includes targeted exams where dose is matched to clinical indication); or iterative reconstruction. Contrast material: OMNI 350; Contrast volume: 100 ml; Contrast route: INTRAVENOUS (IV); REPORTING DATA: Count of CT and Cardiac NM exams in prior 12 months: This patient has received [address] and 0 known cardiac nuclear medicine studies in the 12 months prior to the current study. COMPARISON: CT kidney stone [id number] 05/16/2018 2:43 PM RADIATION DOSE METRICS: Total DLP (mGy-cm): 320.6 FINDINGS: Lungs: Left lower lobe pneumonia. Emphysematous changes. Liver: Normal. No mass. Gallbladder and bile ducts: Cholelithiasis. Pancreas: Normal. No ductal dilation. Spleen: Normal. No splenomegaly. 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 Heterogeneous appearance of the mass raises the question of hemorrhage into the mass, however, no surrounding edema seen to support this by imaging alone, please correlate clinically. Kidneys and ureters: Normal. No hydronephrosis. Stomach and bowel: Prominent fluid in the small bowel without dilation may reflect an enteritis. Sigmoid colon wall thickening suggestive of a colitis in the appropriate clinical setting. Appendix: No evidence of appendicitis. Intraperitoneal space: Unremarkable. No free air. No significant fluid collection. Vasculature: Fusiform abdominal aortic aneurysm measuring up to 4.6 cm. Lymph nodes: Unremarkable. No enlarged lymph nodes. Urinary bladder: Right posterolateral urinary bladder 3.1 cm diverticula, appears chronic. Reproductive: Prostate gland enlarged indenting the base of the urinary bladder. Bones/joints: Unremarkable. No acute fracture. Soft tissues: Unremarkable. CT/CT abdomen pelvis w con* [id number] IMPRESSION: 1. 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 Heterogeneous appearance of the mass raises the question of hemorrhage into the mass, however, no surrounding edema seen to support this by imaging alone, please correlate clinically. 2. Cholelithiasis. 3. Fusiform abdominal aortic aneurysm measuring up to 4.6 cm. 4. Prominent fluid in the small bowel without dilation may reflect an enteritis. 5. Sigmoid colon wall thickening suggestive of a colitis in the appropriate clinical setting. 6. Right posterolateral urinary bladder 3.1 cm diverticula, appears chronic. 7. Left lower lobe pneumonia. 8. Emphysematous changes. 9. Prostate gland enlarged indenting the base of the urinary bladder.
--- NOTE | 2022-08-23 21:58 | ED_ITS ---
HPI - Chest Pain General: Chief Complaint: Chest Pain Stated Complaint: SOB, CP, Abd Pain Time Seen by Provider: 08/23/22 21:44 Source: patient and EMS Mode of arrival: EMS Limitations: no limitations History of Present Illness: 71-year-old male is a chronic smoker states been having some chest and abdominal pain for 2 to 3 weeks he has had lung mass noted on scans and his chest x-ray for quite some time he is never followed anyone with it. He states his pain is having is epigastric in nature he started on omeprazole but states his pain has not improved he rates his pain a 5 out of 10 denies any worsening proving factors denies any vomiting or diarrhea. Associated symptoms: Reports abdominal pain; Deny dyspnea or fever(s) Review of Systems Const: Denies: fever(s), chills, body aches or change in appetite ENMT: Denies: throat pain or dental pain Card: Reports: chest pain Resp: Denies: dyspnea GI: Reports: abdominal pain : Denies: dysuria Musc: Denies: neck pain or back pain Skin/Breast: Denies: rash Neuro: Denies: headache(s) Psych: Denies: depression Nnamdi/Lymph: Denies: easy bruising All/Imm: Denies: urticaria PFSH ED PFSH: Medical History COPD (chronic obstructive pulmonary disease) Hypertension Lung mass Schizophrenia Family History Mother Cancer Other Family history unobtainable due to orphan status Social History Smoking and tobacco status: current every day smoker (5 cigarrettes/day) cigarettes Packs smoked per day: 1 Years cigarettes smoked: 40 Alcohol intake: former Year of sobriety/quit date alcohol: 25 Substance/Drug Use: never Physical Exam Const: COMMON NORMALS: patient oriented x3 HENMT: COMMON NORMALS: normocephalic and atraumatic HEAD & SCALP: norm ocephalic and atraumatic Eye: COMMON NORMALS: Equal, round and reactive pupils present and EOMs intact bilaterally PUPIL: Yes Equal, round and reactive pupils present Neck/C-Spine: COMMON NORMALS: full ROM and supple Chest: COMMONS NORMALS: normal inspection of the chest and normal palpation of entire chest wall Resp: COMMON NORMALS: normal respiratory effort, No retractions, No use of accessory muscles and clear to auscultation bilaterally AUSCULTATION: clear to auscultation bilaterally Cardio: COMMON NORMALS: regular rate, regular rhythm and No murmurs present (Cardio) RATE: regular rate RHYTHM: regular rhythm GI: COMMON NORMALS: Normal to inspection, nondistended, normoactive bowel sounds present, Soft to palpation, non-tender and no masses PALPATION: Yes Soft to palpation Extremity: COMMON NORMALS: normal to inspection and full ROM Neuro: COMMON NORMALS: patient oriented x3, moves all extremities and no focal motor deficits Psych: COMMON NORMALS: mental status grossly normal, Normal thought process present and cooperative THOUGHT PROCESS: Normal thought process present Skin: COMMON NORMALS: no rashes or lesions noted and no wounds GENERAL SKIN EXAM: no rashes or lesions noted Course Vital Signs: Vital signs: Vital Signs Temperature 98.1 F 08/23/22 21:44 Pulse Rate 70 08/23/22 23:11 Respiratory Rate 18 08/23/22 23:11 Blood Pressure 116/73 08/23/22 23:11 Pulse Oximetry 96 08/23/22 23:11 Oxygen Delivery Me thod Room Air 08/23/22 22:30 MDM - Chest Pain Medical Decision Making Patient presents with abdominal pain 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 Medical Records I reviewed the patient's medical records. Lab Data I reviewed the patient's lab results. 08/23/22 21:50 08/23/22 21:50 Radiology Impressions Chest X-Ray 08/23/22 21:45 IMPRESSION: 1. Left again hilar mass again seen measuring up to 7.5 cm, further evaluation with chest CT advised. 2. Left lower lobe pneumonia. 3. Emphysematous changes. 4. Left upper lobe 12 mm calcified granuloma, similar to prior exams. Abdomen/Pelvis CT 08/23/22 21:56 IMPRESSION: 1. 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 Heterogeneous appearance of the mass raises the question of hemorrhage into the mass, however, no surrounding edema seen to support this by imaging alone, please correlate clinically. 2. Cholelithiasis. 3. Fusiform abdominal aortic aneurysm measuring up to 4.6 cm. 4. Prominent fluid in the small bowel without dilation may reflect an enteritis. 5. Sigmoid colon wall thickening suggestive of a colitis in the appropriate clinical setting. 6. Right posterolateral urinary bladder 3.1 cm diverticula, appears chronic. 7. Left lower lobe pneumonia. 8. Emphysematous changes. 9. Prostate gland enlarged indenting the base of the urinary bladder. Laboratory Results WBC 11.5 10^3/uL (4.0-10.0) H 08/23/22 21:50 RBC 4.86 10^6/uL (4.1-5.3) 08/23/22 21:50 Hgb 13.9 g/dL (11.7-16.6) 08/23/22 21:50 Hct 43.3 % (42.0-52.0) 08/23/22 21:50 MCV 89.1 fl (80-94) 08/23/22 21:50 MCH 28.6 pg (28.0-34.0) 08/23/22 21:50 MCHC 32.1 g/dL (30.0-36.0) 08/23/22 21:50 RDW 13.1 % (12.1-15.1) 08/23/22 21:50 Plt Count 345 10^3/cmm (130-400) 08/23/22 21:50 MPV 10.0 fL (7.4-10.4) 08/23/22 21:50 Neut % (Auto) 66.3 % 08/23/22 21:50 Lymph % (Auto) 22.2 % 08/23/22 21:50 [place] % (Auto) 8.9 % 08/23/22 21:50 Eos % (Auto) 1.3 % 08/23/22 21:50 Baso % (Auto) 1.0 % 08/23/22 21:50 Neut # (Auto) 7.61 10^3/uL (1.8-7.7) 08/23/22 21:50 Lymph # (Auto) 2.6 10^3/uL (0.8-4.8) 08/23/22 21:50 [place] # (Auto) 1.0 10^3/uL (0.2-0.9) H 08/23/22 21:50 Eos # (Auto) 0.2 10^3/uL (0.0-0.8) 08/23/22 21:50 Baso # (Auto) 0.1 10^3/uL (0.0-0.1) 08/23/22 21:50 Nucleated RBC % (auto) 0 % 08/23/22 21:50 Nucleated RBCs # 0.0 /100WBC 08/23/22 21:50 PT 14.60 SECONDS (12.1-14.9) 08/23/22 21:50 INR 1.10 (0.8-1.2) 08/23/22 21:50 Sodium 137 mmol/L (136-145) 08/23/22 21:50 Potassium 4.2 mmol/L (3.5-5.1) 08/23/22 21:50 Chloride 99 mmol/L (98-107) 08/23/22 21:50 Carbon Dioxide 26 mmol/L (22-29) 08/23/22 21:50 Anion Gap 16.2 (5-19) 08/23/22 21:50 BUN 13 mg/dL (8-23) 08/23/22 21:50 Creatinine 0.8 mg/dL (0.7-1.2) 08/23/22 21:50 GFR Calculation Not Reportable 08/23/22 21:50 Glucose 115 mg/dL (65-115) 08/23/22 21:50 Calculated Osmolality 285 mOsm/kg (285-295) 08/23/22 21:50 Calcium 9.2 mg/dL (8.5-10.5) 08/23/22 21:50 Total Bilirubin 0.3 mg/dL (0.15-1.2) 08/23/22 21:50 AST 12 U/L (0-40) 08/23/22 21:50 ALT 8 U/L (0-41) 08/23/22 21:50 Alkaline Phosphatase 119 U/L (40-130) 08/23/22 21:50 Troponin T Baseline 11 ng/L (0-15) 08/23/22 21:50 NT-Pro-B Natriuret Pep 162 pg/mL (0-125) H 08/23/22 21:50 Total Protein 6.3 g/dL (6.6-8.7) L 08/23/22 21:50 Albumin 3.8 g/dL (3.5-5.2) 08/23/22 21:50 Globulin 2.5 g/dL (1.3-4.6) 08/23/22 21:50 Lipase 60 U/L (13-60) 08/23/22 21:50 Discharge Plan Discharge Patient Disposition: Home Clinical Impression: Lung mass, Colitis, Adrenal mass Condition: Stable Prescriptions: New hydrocodone-acetaminophen 5-325 mg tablet 1 tab PO Q6H PRN (Reason: pain) Qty: 14 0RF metronidazole 500 mg tablet 500 mg PO Q8H 7 Days Qty: 21 0RF Cipro 500 mg tablet 500 mg PO BID Qty: 14 0RF ondansetron 4 mg tablet,disintegrating 4 mg PO Q6H PRN (Reason: nausea and vomiting) Qty: 14 0RF No Action hydrocodone-acetaminophen 5-325 mg tablet 1 tab PO Q6H PRN (Reason: pain) Qty: 14 0RF ondansetron 4 mg tablet,disintegrating 4 mg PO Q6H PRN (Reason: nausea and vomiting) Qty: 14 0RF Discharge Orders: Discharge ED (Routine); Ordered 08/23/22 Ordered By: Yuly Doan Referrals: Arellano,Estelita, EPIC WILLOW SPECIALIST [Primary Care Provider] - 1-3 days Discharge Diet: Advance as tolerated Discharge Activity: Resume usual activity Patient Instructions: Colitis (ED), Opioid Safety Coding Level of Care Code ED Bindery Machine Operator for Sharmila Camarillo
[2022-08-23 22:00] VITALS: BP 106/77; PULSE 86; O2SAT 94
[2022-08-23 22:12] LABS: Basophils # 0.1 10^3/uL (0.0-0.1); Eosinophils # 0.2 10^3/uL (0.0-0.8); Eosinophils % 1.3 %; Hematocrit 43.3 % (42.0-52.0); Hemoglobin 13.9 g/dL (11.7-16.6); Lymphocytes # 2.6 10^3/uL (0.8-4.8); Lymphocytes % 22.2 %; Mean Corpuscular HGB Conc 32.1 g/dL (30.0-36.0); Mean Corpuscular Hemoglobin 28.6 pg (28.0-34.0); Mean Corpuscular Volume 89.1 fl (80-94); Monocytes % 8.9 %; Neutrophils # 7.61 10^3/uL (1.8-7.7); Neutrophils % 66.3 %; Nucleated Red Blood Cells % 0 %; Platelet Count 345 10^3/cmm (130-400); Red Blood Count 4.86 10^6/uL (4.1-5.3); Red Cell Distribution Width 13.1 % (12.1-15.1); White Blood Count 11.5 10^3/uL (4.0-10.0)
[2022-08-23] MEDS: iohexol 350 mg/mL 500 mL Btl (per mL) IV (22:15)
[2022-08-23 22:23] LABS: Troponin(5th) Baseline 11 ng/L (0-15)
[2022-08-23 22:30] VITALS: BP 125/84; PULSE 71; O2SAT 94
[2022-08-23 22:33] LABS: Alanine Aminotransferase 8 U/L (0-41); Albumin Level 3.8 g/dL (3.5-5.2); Alkaline Phosphatase 119 U/L (40-130); Anion Gap 16.2 (5-19); Aspartate Amino Transferase 12 U/L (0-40); Blood Urea Nitrogen 13 mg/dL (8-23); Calcium 9.2 mg/dL (8.5-10.5); Carbon Dioxide 26 mmol/L (22-29); Chloride 99 mmol/L (98-107); Globulin 2.5 g/dL (1.3-4.6); Glucose 115 mg/dL (65-115); Lipase 60 U/L (13-60); NT Pro B Type Natriuretic Pept 162 pg/mL (0-125); Osmolality Calculated 285 mOsm/kg (285-295); Potassium 4.2 mmol/L (3.5-5.1); Sodium 137 mmol/L (136-145); Total Bilirubin 0.3 mg/dL (0.15-1.2); Total Protein 6.3 g/dL (6.6-8.7)
[2022-08-23 23:11] VITALS: BP 116/73; PULSE 70; RESP 18; O2SAT 96
[2022-08-23] MEDS: HYDROcodone-acetaminophen 5-325 mg Tablet 1 TAB PO (23:13)
--- NOTE | 2022-08-24 08:03 | DCPLANNER ---
Addendum entered by Lulu Bhakta 08/29/22 10:27: cafe or restaurant manager received the following message from the oncology clinic regarding follow up appointment: Telephone call to patient's primary care provider and spoke with Estelita Arellano. I let her know I received a referral from the emergency room for us to see Dario, however he has not had any sort of biopsy completed, so that will need to be completed prior to us being able to see him. She reported they will attempt to call the patient, and let us know. Original Note: cafe or restaurant manager had message to schedule a follow up appointment for patient with oncology. cafe or restaurant manager sent patients information to the front office staff at oncology. Patients information will be printed and reviewed. Clinic will call patient with appointment information.
== END 2022-08-23 23:19 | disposition home or self-care (01) ==
PROVIDERS: Emergency Provider Emergency Medicine; PCP Nurse Practitioner Family
DX: K52.9 Noninfective gastroenteritis and colitis, unspecified (principal); R91.8 Other nonspecific abnormal finding of lung field; E27.9 Disorder of adrenal gland, unspecified; J44.9 Chronic obstructive pulmonary disease, unspecified; I10 Essential (primary) hypertension; F17.210 Nicotine dependence, cigarettes, uncomplicated
CPT/HCPCS: 71045; 74177; 80053; 83690; 83880; 84484; 85025; 85610; 93005; 99285; Q9967

== ENCOUNTER → 2022-10-03 16:11 | Outpatient (BNVA) | payer MEDICARE, MEDICAID, SELFPAY | PROVIDERS: PCP Nurse Practitioner Family; Visit Provider Internal Medicine Pulmonary Disease | DX: R06.02 Shortness of breath (principal); R91.8 Other nonspecific abnormal finding of lung field | CPT/HCPCS: 71046; 99204 ==

== ENCOUNTER 2022-10-14 05:54 | Outpatient (CLI) | payer MEDICARE, MEDICAID, SELFPAY ==
--- NOTE | 2022-10-14 12:00 | PETR_ITS ---
PROCEDURE INFORMATION: Exam: PET/CT Skull Base to Mid-thigh Exam date and time: 10/14/2022 12:44 PM Age: 72 years old Clinical indication: Abnormal findings; Lung mass LABS AND CLINICAL REPORTS: Glucose: 86 mg/dl Treatment strategy for malignancy (PET staging): Initial Staging (PI) TECHNIQUE: Imaging protocol: Following at least four-hour fasting and following the injection of radiopharmaceutical, low dose CT images were obtained. Then, PET images were obtained. Attenuation corrected images were constructed using the CT scan. Fused images of PET and CT were reviewed. The standardized uptake values (SUV) reported below are maximum values within a region of interest, expressed in gm/ml. Exam includes orbital meatal line to mid-thigh. Radiopharmaceutical: 12.41 mCi F-18 FDG (Fluorodeoxyglucose), IV. Time of imaging post radiopharmaceutical administration: 1 hour Injection site: Left antecubital COMPARISON: 1. PT PET Scan 10/12/2020 11:[address] abdomen pelvis w con* [id number] 08/23/2022 10:[address] neck w con* [id number] 03/27/2022 1:54 PM FINDINGS: Brain: Visualized brain has normal physiologic uptake. Oral cavity: Increased FDG uptake at the anterior oral cavity. Pharynx: No abnormal uptake. Larynx: No abnormal uptake. Lungs, pleura and trachea: Upper lung predominant emphysematous changes. Compared to September 2020, substantially increased size of left hilar/perihilar lesion now with the appearance of masslike soft tissue conglomerate measuring approximately 10.3 x 7.6 cm with SUV max of 22.2. This obliterates the left lower lobe bronchus with postobstructive consolidation, ground-glass opacification and reticulation. At the right upper lobe is a spiculated 2.2 x 1.9 cm nodule with SUV max of 12.3. There is a 6 mm nodule at the right lower lobe on axial image 74 of series 3, new from September 2020. There is a rim calcified 1.3 cm left lower lobe nodule without FDG avidity. Heart: Normal physiologic uptake. Mediastinal space: As above. Liver: No abnormal uptake. Gallbladder and bile ducts: No abnormal uptake. Cholelithiasis. Pancreas: No abnormal uptake. Spleen: No abnormal uptake. Adrenal glands: Right adrenal mass measuring 8.3 x 5.4 cm shows avid FDG uptake with SUV max of 20.3. Necrotic component without FDG uptake. Normal left adrenal gland. Kidneys and ureters: Normal physiologic uptake. Stomach and bowel: No bowel dilatation. Colonic diverticulosis without findings of diverticulitis. Focal FDG avidity at the sigmoid colon shows SUV max of 10.4. Urinary bladder: Right posterolateral urinary bladder wall diverticulum. Vasculature: No abnormal uptake. 4.3 cm fusiform infrarenal abdominal aortic aneurysm with peripheral thrombus better characterized on comparison abdominopelvic CT. Lymph nodes: Abnormal mediastinal and left hilar/perihilar lymphadenopathy/mass as above. No lymphadenopathy in the head, neck, abdomen, pelvis, and extremities. Bones/joints: No abnormal uptake in the visualized axial and appendicular skeleton. Soft tissues: No abnormal uptake in the visualized head, neck, chest, abdomen, pelvis, and extremities. PET/PET [facility] SUBSEQ [id number] IMPRESSION: 1. Disease progression now with 10.3 cm mediastinal and left hilar/perihilar mass with increased metabolic activity. Associated obliteration of the left lower lobe bronchus with postobstructive pneumonia. Correlate with pulmonology and oncology evaluation. 2. Spiculated metabolically active 2.2 cm right upper lobe nodule highly suspicious for additional site of malignancy. 3. Metabolically active 8.3 cm right adrenal mass also highly suspicious for malignancy, possibly metastatic disease given abnormal findings in the chest. 4. Focal increased metabolic activity in the sigmoid colon could indicate neoplasm. Recommend direct visualization. 5. Increased FDG uptake in the anterior oral cavity. Recommend direct visualization. 6. Additional chronic and incidental findings as above, to include abdominal aortic aneurysm, colonic diverticulosis, cholelithiasis, and urinary bladder diverticulum.
== END 2022-10-14 05:55 | disposition home or self-care (01) ==
LOC: RAD 10-16 05:54
PROVIDERS: PCP Nurse Practitioner Family; Visit Provider Internal Medicine Pulmonary Disease
DX: R91.8 Other nonspecific abnormal finding of lung field (principal)
CPT/HCPCS: 78815; A9552

== ENCOUNTER 2022-10-24 05:41 | Day surgery (SDC) | payer MEDICARE, MEDICAID, SELFPAY ==
[2022-10-23 09:19] VITALS: BMI 19.8
[2022-10-24] VITALS (13 sets, daily range): BP systolic 146–215; BP diastolic 80–165; PULSE 68–94; RESP 14–26; TEMP 36.1–36.6; O2SAT 86–97
[2022-10-24] MEDS: sodium chloride 0.9% 1,000 ML 30 ML IV (06:19)
[2022-10-24] MEDS: ipratropium-albuterol 3 mL Neb INHALATION (06:39)
--- NOTE | 2022-10-24 06:50 | P.ANESASSM_ITS ---
Pre-Anesthetic Assessment Height/Weight: Height 1.75 m Weight 60.781 kg Temp Pulse Resp BP Pulse Ox O2 Del Method 97.8 F 72 20 H 147/90 97 Room Air 10/24/22 06:07 10/24/22 06:39 10/24/22 06:39 10/24/22 06:07 10/24/22 06:39 10/24/22 06:39 Preop Diagnosis: lung mass Operation Date: 10/24/22 07:10 Proposed Procedures p Ebus [id number],71 250,R91.8(Not Applicable) - Chet Marino MD Familial anesthetic complications: None Was Beta Jett taken within 24 hours: N/A Was Clonidine taken within 24 hours: N/A Last intake: Intake Last Liquid Date 10/23/22 Last Liquid Time 20:00 Last Solid Date 10/22/22 Last Solid Time 13:30 Social Tobacco 1ppd pack(s) per day 60 pack years Exam alert, oriented x 3, clear to auscultation bilaterally and regular rate & rhythm Airway Submandibular: within normal limits and Other Cervical ROM: within normal limits Mallampati: Class I Dentition: false History/ROS No significant history except as noted Pulmonary Chronic Obstructive Pulmonary Disease, Cough and Shortness of Breath (with activity) CV/HEM Hypertension None reported Hepatic None reported GI None reported Metabolic None reported Musc/skel None reported Neuropsych shizophrenia Anesthetic Plan ASA status: 3 Anesthesia: Anesthesia Evaluation and General Risk of > 500 ml blood loss (7ml/kg in children): No Medications/Allergies Home Medications Medication Instructions Recorded Confirmed Last Taken Type ondansetron 4 mg disintegrating 4 mg PO Q6H PRN nausea and 08/09/22 10/24/22 10/23/22 Rx tablet vomiting #14 tabs ciprofloxacin HCl 500 mg tablet 500 mg PO BID #14 tabs 08/23/22 10/24/22 10/23/22 Rx (Cipro) fluticasone fur. 100 mcg-umeclid 1 inh inhalation DAILY #60 ea 10/03/22 10/24/22 10/23/22 Rx 62.5 mcg-vilant 25 mcg inhalat.powder (Trelegy Ellipta) Allergies Allergy/AdvReac Type Severity Reaction Status Date / Time No Known Allergies Allergy Verified 10/03/22 15:10 Current Medications Generic Name Dose Route Start Last Admin Trade Name Angelq PRN Reason Stop Dose Admin Sodium Chloride 1,000 mls @ 30 mls/hr 10/24/22 06:00 10/24/22 06:19 Sodium Chloride 0.9% IV 10/25/22 05:59 30 mls/hr .Q24H CHERYL Administration PFSH Anesthesia Medical History COPD (chronic obstructive pulmonary disease) Hypertension Lung mass Schizophrenia Family History Mother Cancer Other Family history unobtainable due to orphan status Social History Smoking and tobacco status: current every day smoker (5 cigarrettes/day) cigarettes Packs smoked per day: 1 Years cigarettes smoked: 40 Alcohol intake: former Year of sobriety/quit date alcohol: 25 Substance/Drug Use: never Data Anesthesia Cardiac Studies: No Data to Display
--- NOTE | 2022-10-24 07:05 | P.HPUD_ITS ---
Surgery/Procedure H&P Update DATE OF PROCEDURE: October 24, 2022 DATE H&P PERFORMED: 11/03/22 H&P UPDATE INFORMATION: I have reviewed H&P completed within last 30 days, I have examined patient prior to procedure and No changes to prior documentation CHANGES TO PREVIOUS DOCUMENTATION: PET/CT 10/16/22: Disease progression now with 10.3 cm mediastinal and left hilar/perihilar mass with increased metabolic activity. Associated obliteration of the left lower lobe bronchus with postobstructive pneumonia. Correlate with pulmonology and oncology evaluation. Spiculated metabolically active 2.2 cm right upper lobe nodule highly suspicious for additional site of malignancy. Metabolically active 8.3 cm right adrenal mass also highly suspicious for malignancy, possibly metastatic disease given abnormal findings in the chest. Focal increased metabolic activity in the sigmoid colon could indicate neoplasm. Recommend direct visualization. PREOP DIAGNOSIS: lung mass PRIMARY INDICATION FOR PROCEDURE: to rule out malignancy PLANNED PROCEDURE: Operation Date: 10/24/22 07:10 Proposed Procedures p Ebus [id number],42344,83485,56151,71 250,R91.8(Not Applicable) - Chet Marino MD
[2022-10-24] MEDS: lidocaine 1% INJ 10 mL (per mL) XX (07:22)
[2022-10-24] MEDS: EPINEPHrine 1 mg/mL INJ XX (08:00)
--- NOTE | 2022-10-24 08:13 | P.OP_ITS ---
Operative Report Date of procedure: October 24, 2022 Pre-op diagnosis: Preop Diagnosis lung mass Post-op diagnosis: same Procedure done: 39738 Dx Bronchoscope w/BAL 97921 Dx Bronchoscopy w/Bronchial or Endobronchial biopsy(s), single or multiple sites 71825 Bronchoscopy w/ therapeutic aspiration of the tracheobronchial tree (clearance of airway secretions, removal of mucus plugs) 07542 EBUS Sampling 1/2 nodes Surgeon: Chet Marino MD, [facility] Brief History: Mr. Dario Brunner is a 72-year-old male with past medical history of COPD, hypertension, referred by Ms. Arellano for lung mass.? Patient has been difficult to reach. He is a current smoker .5-1ppd for 58 years. Patient was seen in ER on August 23, 2022 for the abdominal pain.? He had a CT abdomen pelvis 08/23/2022 which showed right adrenal heterogenous 6.6 cm mass and mild colitis.? He was discharged home with antibiotics and recommended to follow-up with oncology.? Patient reported taking hydrocodone-acetaminophen as needed for his pain. This patient had a CT chest in August 2020-2 years ago-which showed 3.1 cm spiculated nodule in retrohilar left lower lobe.? He was referred to CT surgery who ordered a PET CT scan performed 10/12/2020-showed densely calcified granuloma superior segment left lower lobe.? There is 2.5 x 2.5 cm mass indisposed within bronchus and left lower lobe descending thoracic aorta metabolically active with SUV 11.? There was also a single focus of intensity activity in sigmoid colon and pelvic inlet with SUV max 14.? He was recommended to follow-up with pulmonary for possible bronchoscopy and endobronchial biopsies.? However patient never followed. Again in March 2022-patient had a CT neck which showed left-sided tonsillar pillar abscess, which according to patient was biopsied and was told there is no malignancy.? The same CT neck also showed right apical spiculated mass suspicious for neoplastic process and so he was referred to pulmonary clinic.? We attempted to schedule appointment with him but he did not tack picker his phone and his voicemail was full. Again in August 2022-he comes back to ER for abdominal pain and had a CT abdomen pelvis which showed right adrenal heterogeneous 6.6 cm mass suspicious for metastatic disease.? We wanted to see him as soon as possible-however it was difficult to reach the patient again.? Finally he was able to come to clinic 10/03/2022. Patient states it hurts his chest to breath in and out, and has left side flank pain and abdominal pain 7/10 pain, has been getting dizzy. He denied any vomitings, diarrhea,? fevers, chills.? Says he has been having this pain for the last few months and he is taking pain pills as needed. I have expressed concern that these lesions needs to be biopsied as soon as possible to get tissue diagnosis and rule out malignancy.? Patient agreed to the plan however he deferred procedure for first week of October. Meanwhile we were able to do PET CT scan which showed PET active lesions and mediastinal and left hilar/perihilar mass with increased metabolic activity SUV 22. There is spiculated metabolically active 2.2 cm right upper lobe nodule with SUV 12.3. Also noted PET active lesions in right adrenal gland as well as focal increased metabolic activity in sigmoid colon, anterior oral cavity. Today patient is scheduled for bronchoscopic evaluation of airways as well as possible endobronchial lesions, endobronchial ultrasound guided biopsies of hilar/perihilar/mediastinal mass Procedure: 10595 Dx Bronchoscope w/BAL 50737 Dx Bronchoscopy w/Bronchial or Endobronchial biopsy(s), single or multiple sites 05547 Bronchoscopy w/ therapeutic aspiration of the tracheobronchial tree (clearance of airway secretions, removal of mucus plugs) 02660 EBUS Sampling 1/2 nodes Indication: PET active mediastinal/hilar lymph nodes-rule out Malignancy Anesthesia: General anesthesia. Local anesthesia: The meredith in the right and left mainstem bronchi were anesthetized with 1% lidocaine, 3 mL. Description of the procedure: The procedure was explained to the patient and the consent was obtained. The patient was brought to the OR. The patient underwent induction for general anesthesia and endotracheal tube was placed. The bronchoscope was advanced through the ET tube. The distal trachea was visualized. Tracheal mucosa appeared normal, no endotracheal lesion was seen. The meredith was sharp. 1 mL each of 1% lidocaine was instilled in the trachea the right and left mainstem bronchi for local anesthesia. In a systematic manner bilateral bronchial tree was then examined. The bronchoscope was then introduced into the right mainstem bronchus. The right upper lobe, right middle lobe and right lower lobe bronchi were examined up to the third subsegmental level and no abnormalities were identified. The mucosa appeared normal with no endobronchial lesions, active bleeding or mucous plugs.There were clear secretions which were suctioned right away(46134). The bronchoscope was advanced into the left mainstem bronchus. There is a endobronchial lesion which is completely occluding left lower lobe airway. It is friable and started to bleed as soon as bronchoscope touched the surface. The left upper lobe, and lingula were examined up to the third subsegmental level and no abnormalities were identified. Mucosa of left upper lobe and lingula appeared normal with no endobronchial lesion. There were clear secretions which were suctioned right away(35925). With the help of forceps-endobronchial biopsies were taken from the mass in the distal left mainstem occluding left lower lobe airway.(98283) Bronchoalveolar lavage was taken near left lower lobe Bronchoscope was retracted and Endobronchial Ultrasound (EBUS)(07991 ) was introduced. Identified a large hypoechoic mass in 4L area posteriorly as well as in station 7 area. Using [id number] were taken from all station 4L as well as station 7 (91871); there was some evidence of bleeding which is controlled with instillation of cold saline as well as diluted epinephrine. After making sure there is no active bleeding, bronchoscope retracted and procedure terminated. Samples: 1. Endobronchial biopsies from distal left mainstem mass occluding left lower lobe airway (36568). 2. Bronchoalveolar lavage (65378) was performed after wedging the bronchoscope at the entrance of occluded left lower lobe. 30 mL of saline was instilled, fluid return was 10 mL. Bronchoalveolar lavage specimen was sent for cell count and differential, gram stain and culture, cytology EBUS guided [id number] were taken from 2 lymph node stations (95515): 3. station 4L : touch prep -pathology reported seeing no definite malignant cells, atypical lymphocytes; rest of the material were placed in formalin for histopathology; 4. Station 7 : 4 passes were taken and all the material was placed in formalin for histopathology Complications: None.The patient was extubated and brought to the PACU in stable condition. Disposition: Patient can be discharged home in stable condition. Pt is aware that I am going to call them to update final biopsy results once available.
[2022-10-24] MEDS: labetalol 5 mg/mL SDV 20mL 10 MG IVP (08:47)
--- NOTE | 2022-10-24 09:00 | ANE.PACU2 ---
Inpatient post-anesthesia follow up: Airway intact: Yes Vital signs: Temperature 97 F Pulse Rate 73 Respiratory Rate 20 Blood Pressure 159/87 Pulse Oximetry 90 Oxygen Delivery Me thod Room Air Oxygen Flow Rate Fraction of Inspir ed Oxygen Hydration adequate: Yes Nausea and vomiting: No Pain level: 1 Mental status: Baseline
[2022-10-24 09:26] LABS: Apprearance, Bronch Wash Turbid (CLEAR); Color, Bronc Wash Red
[2022-10-24 09:31] LABS: Cyto Order Verification Order Verified
[2022-10-24 09:32] LABS: Cyto Order Verification Order Verified
[2022-10-24 11:13] LABS: PATH Referral Yes; Total Cells Counted Bronch 200
[2022-11-03 09:39] LABS: PD-L1 (Clone 22C3) by IHC BBPL See Report
== END 2022-10-24 09:40 | disposition home or self-care (01) ==
PROVIDERS: PCP Nurse Practitioner Family; Visit Provider Internal Medicine Pulmonary Disease
PROC: BB4BZZZ Ultrasonography of Pleura (ICD-10-PCS; principal; 2022-10-24 07:00)
DX: R91.8 Other nonspecific abnormal finding of lung field (principal); F17.210 Nicotine dependence, cigarettes, uncomplicated; I10 Essential (primary) hypertension; J44.9 Chronic obstructive pulmonary disease, unspecified; N28.89 Other specified disorders of kidney and ureter
CPT/HCPCS: 31624; 31625; 31645; 31652; 80503; 87070; 87205; 88112; 88305; 88309; 88341; 88342; 89050; 94640; J0171; J1100; J2405; J2704; J2710; J3010; J3490; J7030

== ENCOUNTER 2022-11-14 14:13 | Oncology outpatient (recurring) (ONCR) | payer MEDICARE, MEDICAID, SELFPAY | END 2022-11-16 23:59 | disposition home or self-care (01) | PROVIDERS: PCP Nurse Practitioner Family; Visit Provider Internal Medicine Medical Oncology | DX: F17.210 Nicotine dependence, cigarettes, uncomplicated; C79.70 Secondary malignant neoplasm of unspecified adrenal gland; C34.90 Malignant neoplasm of unspecified part of unspecified bronchus or lung; Z79.899 Other long term (current) drug therapy; C34.92 Malignant neoplasm of unspecified part of left bronchus or lung | CPT/HCPCS: 99205 ==

== ENCOUNTER 2022-12-27 21:15 | Emergency (ER) | payer MEDICARE, MEDICAID, SELFPAY ==
[2022-12-27 21:37] VITALS: BP 153/85; PULSE 77; RESP 18; TEMP 36.9; O2SAT 100; BMI 20.5
[2022-12-27 21:51] VITALS: RESP 18; O2SAT 96
[2022-12-27] MEDS: morphine 4 mg/mL SDV 1 mL IVP (21:51)
--- NOTE | 2022-12-27 21:59 | PC.NURSE ---
Spoke with Dr Portillo. Dr Portillo states that there is not much for us to do regarding patient treatment, as pt is terminally ill and is here only for pain treatment. Dr Portillo to speak with family at bedside and update them.
--- NOTE | 2022-12-27 22:04 | ED_ITS ---
HPI - Back Pain/Injury General: Chief Complaint: Back Pain/Injury Stated Complaint: back pain, SOB Time Seen by Provider: 12/27/22 21:34 History of Present Illness: 72-year-old male presents with back pain. Patient is on hospice due to lung cancer and presents because he is having back pain. Patient has a fentanyl patch but reports it is not helping. Patient called hospice who told him not to come to the ER but he came to the ER due to the pain. Associated symptoms: Deny chills or fever(s) Review of Systems Const: Denies: fever(s) or chills Card: Denies: chest pain or palpitations Resp: Denies: dyspnea or productive cough Musc: Reports: back pain Skin/Breast: Denies: rash Neuro: Denies: headache(s) [facility] ED PFSH: Medical History (Updated 12/27/22 @ 22:29 by Suleiman Portillo DO) COPD (chronic obstructive pulmonary disease) Hypertension Lung mass Schizophrenia Family History Mother Cancer Other Family history unobtainable due to orphan status Social History Smoking and tobacco/nicotine status: current every day tobacco/nicotine user (5 cigarrettes/day) cigarettes Packs smoked per day: 1 Years cigarettes smoked: 40 Alcohol intake: former Year of sobriety/quit date alcohol: 25 Substance/Drug Use: never Physical Exam Const: COMMON NORMALS: patient oriented x3 GENERAL APPEARANCE: disheveled and frail appearing Resp: COMMON NORMALS: normal respiratory effort and clear to auscultation bilaterally AUSCULTATION: clear to auscultation bilaterally Cardio: COMMON NORMALS: regular rate and regular rhythm RATE: regular rate RHYTHM: regular rhythm Neuro: COMMON NORMALS: patient oriented x3, no focal motor deficits and no sensory deficits noted Psych: COMMON NORMALS: mental status grossly normal and speech normal SPEECH: Yes normal speech Course Vital Signs: Vital signs: Vital Signs Temperature 98.5 F 12/27/22 21:37 Pulse Rate 77 12/27/22 21:37 Respiratory Rate 18 12/27/22 22:23 Blood Pressure 153/85 12/27/22 21:37 Pulse Oximetry 96 12/27/22 21:51 Oxygen Delivery Me thod Nasal Cannula 12/27/22 21:37 Oxygen Flow Rate 2 12/27/22 21:37 MDM - Back Pain/Injury Medical Decision Making Patient is currently on hospice. At this time there is no new pain issues just worse tonight. Patient has a fentanyl patch and has oxycodone 20 mg he can take every 4 hours. He is not having oxycodone in the last 6 hours. I discussed with family that they may visit with hospice about better pain control and other options. He also felt that he may benefit from a hospital bed so I did recommend a visit with hospice tomorrow to help him arrange for hospital bed between them and the primary care provider. Patient was given some IV pain medication, oxycodone and Norflex in the ER. I discussed with him that this will simply help him through the night and he can follow-up with hospice and his primary care provider tomorrow. Patient is stable and discharged home Medical Records I reviewed the patient's medical records. No radiology studies performed this visit Discharge Plan Discharge Patient Disposition: Home Clinical Impression: Non-small cell lung cancer with metastasis, Palliative care patient Condition: Stable Prescriptions: No Action hydrocodone-acetaminophen 5-325 mg tablet 1 tab PO Q8H PRN (Reason: pain) 7 Days Qty: 21 0RF Trelegy Ellipta 100-62.5-25 mcg blister with device 1 inh inhalation DAILY Qty: 60 6RF ondansetron 4 mg tablet,disintegrating 4 mg PO Q6H PRN (Reason: nausea and vomiting) Qty: 14 0RF ciprofloxacin HCl [Cipro] 500 mg tablet 500 mg PO BID Qty: 14 0RF Colace 100 mg capsule 100 mg PO DAILY Qty: 14 0RF Discharge Orders: Discharge ED (Routine); Ordered 12/27/22 Ordered By: Suleiman Portillo Referrals: Arellano,MARLENE CaponeN [Primary Care Provider] - Discharge Diet: Usual diet Discharge Activity: Increase activity as tolerated Patient Instructions: Hospice Care, Opioid Safety, Pain Management Activity Restrictions/Additional Instructions: Please visit with your palliative care/hospice team tomorrow for further pain management options. Please discuss a hospital bed with them and other options to help with your care. Coding Level of Care Code ED Chalk Cutter for Sharmila Camarillo
[2022-12-27 22:23] VITALS: RESP 18
[2022-12-27] MEDS: orphenadrine 30 mg/mL Inj 2 mL 60 MG IVP (22:23)
[2022-12-27] MEDS: oxyCODONE 5 mg IR Tab/Cap 10 MG PO (22:23)
[2022-12-27 22:38] VITALS: PULSE 86; RESP 18; O2SAT 94
[2022-12-27 22:40] VITALS: O2SAT 94
== END 2022-12-27 22:39 | disposition home or self-care (01) ==
PROVIDERS: Emergency Provider Student in an Organized Health Care Education/Training Program; PCP Nurse Practitioner Family
DX: C34.90 Malignant neoplasm of unspecified part of unspecified bronchus or lung (principal); C79.9 Secondary malignant neoplasm of unspecified site; Z51.5 Encounter for palliative care; J44.9 Chronic obstructive pulmonary disease, unspecified; I10 Essential (primary) hypertension; F17.210 Nicotine dependence, cigarettes, uncomplicated
CPT/HCPCS: 96374; 96375; 99284; J2270; J2360

== ENCOUNTER 2023-01-03 09:12 | Emergency (ER) | payer MEDICARE, MEDICAID, SELFPAY ==
[2023-01-03 09:17] VITALS: BP 112/57; PULSE 89; RESP 16; TEMP 36.4; O2SAT 91
[2023-01-03] MEDS: ondansetron 2 mg/ML SDV 2 mL 4 MG IVP (09:24)
[2023-01-03] MEDS: morphine 4 mg/mL SDV 1 mL 6 MG IVP (09:26)
[2023-01-03] MEDS: dexamethasone 10 mg/mL INJ IM (09:29)
--- NOTE | 2023-01-03 09:29 | W.ED.BACK ---
HPI - Back Pain/Injury General: Chief Complaint: Back Pain/Injury Stated Complaint: Back Pain/ Hospice Time Seen by Provider: 01/03/23 09:15 Source: patient Mode of arrival: EMS History of Present Illness: 72-year-old male presents emergency room states he is on hospice for lung cancer. He states he never received any treatment for it. He is under the services of [facility]. He called in this morning because his pain is poorly controlled and told him he was in route there were in route to come in evaluate him he became frustrated with time delay in calling ambulance. He denies any hemoptysis. He is on morphine at home he states he took 30 mg p.o. before he called ambulance is still has no relief of pain. Previous oncology note reviewed. Patient was relatively noncompliant evidently with his work-up did confirm non-small cell CA with extensive metastasis after conferring with oncology he elected to go with hospice care. Associated symptoms: Deny abdominal pain, chills, dysuria, fever(s) or urinary urgency Review of Systems Const: Denies: fever(s) or chills Card: Denies: chest pain Resp: Denies: dyspnea GI: Denies: abdominal pain : Denies: dysuria, urinary frequency or urinary urgency Musc: Denies: neck pain or back pain Skin/Breast: Denies: rash PFSH ED PFSH: Medical History COPD (chronic obstructive pulmonary disease) Hypertension Lung mass Schizophrenia Family History Mother Cancer Other Family history unobtainable due to orphan status Social History Smoking and tobacco/nicotine status: current every day tobacco/nicotine user (5 cigarrettes/day) cigarettes Packs smoked per day: 1 Years cigarettes smoked: 40 Alcohol intake: former Year of sobriety/quit date alcohol: 25 Substance/Drug Use: never Physical Exam Const: COMMON NORMALS: no acute distress GENERAL APPEARANCE: cooperative and comfortable ORIENTATION/CONSCIOUSNESS: Yes awake, Yes oriented to person, Yes oriented to place and Yes oriented to time HENMT: COMMON NORMALS: normocephalic, atraumatic and hearing grossly normal bilaterally HEAD & SCALP: normocephalic and atraumatic Resp: COMMON NORMALS: normal respiratory effort, No retractions, No use of accessory muscles and clear to auscultation bilaterally AUSCULTATION: clear to auscultation bilaterally Cardio: COMMON NORMALS: regular rate, regular rhythm and No murmurs present (Cardio) RATE: regular rate RHYTHM: regular rhythm GI: COMMON NORMALS: Soft to palpation and No hepatosplenomegaly present AUSCULTATION: Yes normoactive bowel sounds PALPATION: Yes Soft to palpation, No Tenderness to palpation present (GI), No Guarding due to palpation present (GI) and Yes No hepatosplenomegaly present Extremity: COMMON NORMALS: normal to inspection, capillary refill normal, no clubbing, cyanosis or edema, no calf tenderness and no pedal edema Neuro: SENSORIUM/ORIENTATION: Yes oriented to person, Yes oriented to place and Yes oriented to time Skin: COMMON NORMALS: no rashes or lesions noted GENERAL SKIN EXAM: no rashes or lesions noted Course Vital Signs: Vital signs: Vital Signs Temperature 97.6 F 01/03/23 09:17 Pulse Rate 70 01/03/23 16:22 Respiratory Rate 18 01/03/23 16:22 Blood Pressure 110/62 01/03/23 16:22 Pulse Oximetry 92 01/03/23 16:22 Oxygen Delivery Me thod Nasal Cannula 01/03/23 15:00 Oxygen Flow Rate 2 01/03/23 15:00 MDM - Back Pain/Injury Medical Decision Making Contacted his hospice nurse. Patient has not been using his medications regularly he is simply not taking them. He does have a fentanyl patch is evidence there was a fentanyl patch on the back of his right arm but he is not on there now. The hospice nurses when they do pill counts he has more medicine the left than he should. Patient was given 6 mg of morphine here at [facility] discharge him home encouraged him to use pain medication as prescribed who advised hospice that he will be discharging home so they can continue to help manage his pain issues Medical Records I reviewed the patient's medical records. Labs I reviewed the patient's lab results. No radiology studies performed this visit Discharge Plan Discharge Patient Disposition: Home Clinical Impression: Non-small cell lung cancer with metastasis, Thoracic back pain Condition: Stable Prescriptions: No Action hydrocodone-acetaminophen 5-325 mg tablet 1 tab PO Q8H PRN (Reason: pain) 7 Days Qty: 21 0RF Trelegy Ellipta 100-62.5-25 mcg blister with device 1 inh inhalation DAILY Qty: 60 6RF ondansetron 4 mg tablet,disintegrating 4 mg PO Q6H PRN (Reason: nausea and vomiting) Qty: 14 0RF ciprofloxacin HCl [Cipro] 500 mg tablet 500 mg PO BID Qty: 14 0RF Colace 100 mg capsule 100 mg PO DAILY Qty: 14 0RF Discharge Orders: Discharge ED (Routine); Ordered 01/03/23 Ordered By: Elias Daniels Referrals: Arellano,Estelita, TECHNICAL INTERN [Primary Care Provider] - Discharge Diet: Usual diet Discharge Activity: Increase activity as tolerated Patient Instructions: Opioid Safety, Pain Management Activity Restrictions/Additional Instructions: Continue to follow with hospice care for your pain management issues. Coding Level of Care Code ED Wire Web Worker for Sharmila Camarillo
[2023-01-03] MEDS: orphenadrine 30 mg/mL Inj 2 mL 60 MG IVP (09:30)
[2023-01-03 11:17] VITALS: RESP 16; O2SAT 92
[2023-01-03 13:00] VITALS: PULSE 64; RESP 16; O2SAT 95
[2023-01-03 15:00] VITALS: PULSE 84; RESP 16; O2SAT 92
[2023-01-03 16:22] VITALS: BP 110/62; PULSE 70; RESP 18; O2SAT 92
== END 2023-01-03 16:23 | disposition home or self-care (01) ==
PROVIDERS: Emergency Provider Family Medicine; PCP Nurse Practitioner Family
DX: C34.90 Malignant neoplasm of unspecified part of unspecified bronchus or lung (principal); C79.9 Secondary malignant neoplasm of unspecified site; M54.6 Pain in thoracic spine; J44.9 Chronic obstructive pulmonary disease, unspecified; I10 Essential (primary) hypertension; F17.210 Nicotine dependence, cigarettes, uncomplicated
CPT/HCPCS: 96372; 96374; 96375; 99284; J1100; J2270; J2360; J2405